=== PATIENT | female | born 1945 | race African-American/Black ===

== ENCOUNTER 2016-05-10 20:24 | Emergency (ER) | payer OTHER, MEDICAID ==
[~2016-05-10] VITALS: Ht 162.6 cm; Wt 78.5 kg
[~2016-05-10 20:24] MED LIST: ALBUAER3 IN; ALEN35TA18 PO; AMLO5TAB2 PO; CANA100T OR; DOCU60SY2 PO; FERR325T50 PO; GABA300C8; IBUP800T24 PO; LATA0.0015 EACHEYE; LISI-646 PO; NOR10T PO; OXYB15TA12 PO; PRAV20TA3 PO; SERDISK IN
[2016-05-10 20:45] VITALS: BP 141/67
[2016-05-10 21:19] LABS: Basophils # (auto) 0 uL; Basophils % (auto) 0.6 % (0.0-2.0); Eosinophils # (auto) 0.2 uL; Eosinophils % (auto) 2.5 % (0.0-7.0); Hemoglobin 11.5 g/dL (12.2-16.2); Lymphocytes # (auto) 2.1 uL; Lymphocytes % (auto) 34.6 % (10.0-50.0); Mean Corpuscular Hemoglobin 28.9 pg (28.0-32.0); Mean Corpuscular Hgb Conc. 31.9 g/dL (32.0-36.0); Mean Corpuscular Volume 90.7 fL (80.0-100.0); Mean Platelet Volume 7.8 fL (7.4-10.4); Monocytes # (auto) 0.4 uL; Monocytes % (auto) 6.6 % (0.0-12.0); Neutrophils # (auto) 3.4 uL; Neutrophils % (auto) 55.7 % (37.0-80.0); Platelet Count (auto) 308 10^3/uL (140-450); Red Cell Distribution Width 16.7 % (11.6-16.0); White Blood Cell 6.1 10^3/uL (4.4-10.8)
[2016-05-10 21:42] LABS: Albumin 3.8 g/dL (3.4-5.0); BUN/Creatinine Ratio 12.8; Bilirubin, Total 0.3 mg/dL (0.2-1.0); Calcium 9.2 mg/dL (8.5-10.1); Potassium 4.2 mmol/L (3.5-5.1); Total Protein 8.1 g/dL (6.4-8.2)
== END 2016-05-11 01:20 | disposition left against medical advice (07) ==
LOC: ER 20:29
DX: R07.89 Other chest pain (principal); Z53.21 Procedure and treatment not carried out due to patient leaving prior to being seen by health care provider
CPT/HCPCS: 36415; 71010; 80053; 84484; 85025; 93005

== ENCOUNTER 2017-06-12 15:33 | Emergency (ER) | payer OTHER, MEDICAID ==
[~2017-06-12] VITALS: Ht 162.6 cm; Wt 80.7 kg
[~2017-06-12 15:33] MED LIST changes: +GABA300C10; -GABA300C8
[2017-06-12 15:55] VITALS: BP 135/61
[2017-06-12 16:51] LABS: Basophils # (auto) 0 uL; Basophils % (auto) 0.6 % (0.0-2.0); Eosinophils # (auto) 0.1 uL; Eosinophils % (auto) 2.4 % (0.0-7.0); Hematocrit 36.6 % (36.0-46.0); Hemoglobin 11.8 g/dL (12.2-16.2); Lymphocytes # (auto) 1.8 uL; Lymphocytes % (auto) 32.3 % (10.0-50.0); Mean Corpuscular Hemoglobin 29.8 pg (28.0-32.0); Mean Corpuscular Hgb Conc. 32.3 g/dL (32.0-36.0); Mean Corpuscular Volume 92.2 fL (80.0-100.0); Monocytes # (auto) 0.3 uL; Monocytes % (auto) 5.8 % (0.0-12.0); Neutrophils # (auto) 3.3 uL; Neutrophils % (auto) 58.9 % (37.0-80.0); Platelet Count (auto) 319 10^3/uL (140-450); Red Blood Cells 3.96 10^6/uL (4.0-5.20); Red Cell Distribution Width 16.6 % (11.8-14.3); White Blood Cell 5.7 10^3/uL (4.4-10.8)
[2017-06-12 17:51] LABS: Alanine Aminotransferase 10 U/L (13-56); Albumin 3.8 g/dL (3.4-5.0); Alkaline Phosphatase 80 U/L (45-117); Anion Gap 7 (5-15); Aspartate Aminotransferase 13 U/L (15-37); BUN/Creatinine Ratio 13.1; Bilirubin, Total 0.3 mg/dL (0.2-1.0); Blood Urea Nitrogen 16 mg/dL (7-18); Calcium 8.8 mg/dL (8.5-10.1); Carbon Dioxide 25 mmol/L (21-32); Chloride 105 mmol/L (98-107); GFR African American 56 mL/min; GFR Non-African American 46 mL/min; Glucose 90 mg/dL (74-106); Potassium 4.2 mmol/L (3.5-5.1); Sodium 137 mmol/L (136-145); Total Protein 8.4 g/dL (6.4-8.2)
== END 2017-06-12 19:16 | disposition home or self-care (01) ==
LOC: ER 15:33
DX: R07.89 Other chest pain (principal); M19.90 Unspecified osteoarthritis, unspecified site; I13.0 Hypertensive heart and chronic kidney disease with heart failure and stage 1 through stage 4 chronic kidney disease, or unspecified chronic kidney disease; N18.9 Chronic kidney disease, unspecified; J44.9 Chronic obstructive pulmonary disease, unspecified; E11.22 Type 2 diabetes mellitus with diabetic chronic kidney disease; E78.5 Hyperlipidemia, unspecified; E07.9 Disorder of thyroid, unspecified; I25.810 Atherosclerosis of coronary artery bypass graft(s) without angina pectoris; Z95.1 Presence of aortocoronary bypass graft; Z79.899 Other long term (current) drug therapy; Z90.710 Acquired absence of both cervix and uterus; Z79.84 Long term (current) use of oral hypoglycemic drugs; Z86.73 Personal history of transient ischemic attack (TIA), and cerebral infarction without residual deficits
CPT/HCPCS: 36415; 71045; 80053; 84484; 85025; 93005

== ENCOUNTER 2017-07-12 11:36 | Emergency (ER) | payer OTHER, MEDICAID ==
[~2017-07-12] VITALS: Ht 162.6 cm; Wt 77.1 kg
[2017-07-12 11:44] VITALS: BP 116/62
[2017-07-12 12:30] LABS: Basophils # (auto) 0 uL; Basophils % (auto) 0.6 % (0.0-2.0); Eosinophils # (auto) 0.1 uL; Eosinophils % (auto) 2.2 % (0.0-7.0); Hematocrit 34.6 % (36.0-46.0); Hemoglobin 11.4 g/dL (12.2-16.2); Lymphocytes # (auto) 1.5 uL; Lymphocytes % (auto) 30.2 % (10.0-50.0); Mean Corpuscular Hemoglobin 29.9 pg (28.0-32.0); Mean Corpuscular Hgb Conc. 32.8 g/dL (32.0-36.0); Mean Corpuscular Volume 91.2 fL (80.0-100.0); Monocytes # (auto) 0.3 uL; Monocytes % (auto) 5.6 % (0.0-12.0); Neutrophils % (auto) 61.4 % (37.0-80.0); Nucleated Red Blood Cells % 0.1 %; Platelet Count (auto) 300 10^3/uL (140-450); White Blood Cell 4.8 10^3/uL (4.4-10.8)
[2017-07-12 13:01] LABS: Alanine Aminotransferase 11 U/L (13-56); Albumin 3.4 g/dL (3.4-5.0); Alkaline Phosphatase 84 U/L (45-117); Anion Gap 8 (5-15); Aspartate Aminotransferase 11 U/L (15-37); BUN/Creatinine Ratio 11.3; Bilirubin, Total 0.3 mg/dL (0.2-1.0); Blood Urea Nitrogen 15 mg/dL (7-18); Calcium 8.8 mg/dL (8.5-10.1); Carbon Dioxide 23 mmol/L (21-32); Chloride 111 mmol/L (98-107); GFR African American 51 mL/min; GFR Non-African American 42 mL/min; Glucose 141 mg/dL (74-106); Magnesium 2.4 mg/dL (1.6-2.6); Potassium 4.3 mmol/L (3.5-5.1); Sodium 142 mmol/L (136-145); Total Protein 7.9 g/dL (6.4-8.2)
== END 2017-07-12 16:00 | disposition left against medical advice (07) ==
LOC: ER 11:36
DX: R07.9 Chest pain, unspecified (principal); Z53.21 Procedure and treatment not carried out due to patient leaving prior to being seen by health care provider
CPT/HCPCS: 36415; 71046; 80053; 82962; 83735; 84484; 85025; 93005

== ENCOUNTER 2018-12-26 20:12 | Emergency (ER) | payer OTHER, MEDICAID ==
[~2018-12-26] VITALS: Ht 165.1 cm; Wt 82.1 kg
[~2018-12-26 20:12] MED LIST changes: -ALBUAER3 IN; -ALEN35TA18 PO; -AMLO5TAB2 PO; -CANA100T OR; -GABA300C10; +GABA300C10 PO; -LISI-646 PO; +LISI10TA6 PO; -OXYB15TA12 PO; +OXYB5SYP4 PO; -PRAV20TA3 PO; -SERDISK IN
[2018-12-26 20:53] LABS: Basophils # (auto) 0 uL; Basophils % (auto) 0.6 % (0.0-2.0); Eosinophils # (auto) 0.2 uL; Eosinophils % (auto) 2.7 % (0.0-7.0); Hematocrit 34.5 % (36.0-46.0); Hemoglobin 11.5 g/dL (12.2-16.2); Lymphocytes % (auto) 31.1 % (10.0-50.0); Mean Corpuscular Hemoglobin 30.2 pg (28.0-32.0); Mean Corpuscular Hgb Conc. 33.4 g/dL (32.0-36.0); Mean Corpuscular Volume 90.2 fL (80.0-100.0); Monocytes # (auto) 0.4 uL; Monocytes % (auto) 6.7 % (0.0-12.0); Neutrophils # (auto) 3.8 uL; Neutrophils % (auto) 58.9 % (37.0-80.0); Nucleated Red Blood Cells % 0.1 %; Platelet Count (auto) 290 10^3/uL (140-450); Red Blood Cells 3.83 10^6/uL (4.0-5.20); Red Cell Distribution Width 15.6 % (11.8-14.3); White Blood Cell 6.5 10^3/uL (4.4-10.8)
[2018-12-26 20:56] LABS: Alanine Aminotransferase 12 U/L (13-56); Albumin 3.2 g/dL (3.4-5.0); Anion Gap 6 (5-15); Aspartate Aminotransferase 11 U/L (15-37); BUN/Creatinine Ratio 8.4; Blood Urea Nitrogen 12 mg/dL (7-18); Calcium 8.7 mg/dL (8.5-10.1); Carbon Dioxide 28 mmol/L (21-32); Chloride 108 mmol/L (98-107); GFR African American 46 mL/min; GFR Non-African American 38 mL/min; Glucose 136 mg/dL (74-106); Potassium 3.6 mmol/L (3.5-5.1); Sodium 142 mmol/L (136-145)
[2018-12-26 21:11] LABS: Alkaline Phosphatase 88 U/L (45-117); Bilirubin, Total 0.2 mg/dL (0.2-1.0); Total Protein 7.2 g/dL (6.4-8.2)
[2018-12-26 21:32] LABS: Urine Bacteria FEW /hpf (None Seen); Urine Blood 1+ /uL (Negative); Urine Specific Gravity 1.017 (1.001-1.035); Urine WBC 5 /hpf (0 - 5)
[2018-12-27] VITALS: BP 120/45
== END 2018-12-27 01:22 | disposition left against medical advice (07) ==
LOC: ER 20:23
DX: R07.9 Chest pain, unspecified (principal); Z53.21 Procedure and treatment not carried out due to patient leaving prior to being seen by health care provider
CPT/HCPCS: 36415; 71046; 80053; 81001; 84484; 85025

== ENCOUNTER 2019-08-11 22:14 | Inpatient (IN) | payer OTHER, MEDICAID ==
[~2019-08-11] VITALS: Ht 162.6 cm; Wt 95.4 kg
[~2019-08-11 22:14] MED LIST changes: -LATA0.0015 EACHEYE; +LATA0.0019 EACHEYE
[2019-08-11 23:15] LABS: Hematocrit 32.3 % (36.0-46.0); Hemoglobin 10.6 g/dL (12.2-16.2); Mean Corpuscular Hemoglobin 29.8 pg (28.0-32.0); Mean Corpuscular Hgb Conc. 32.7 g/dL (32.0-36.0); Mean Corpuscular Volume 91.3 fL (80.0-100.0); Platelet Count (auto) 319 10^3/uL (140-450); Red Blood Cells 3.54 10^6/uL (4.0-5.20); Red Cell Distribution Width 16.1 % (11.8-14.3); White Blood Cell 16.5 10^3/uL (4.4-10.8)
[2019-08-11] MEDS ORDERED: cefTRIAXone 1GM/50ML D5W 50 ML IV ONE (23:15)
[2019-08-11] MEDS ORDERED: SODIUM CHLORIDE 0.9% 3,000 ML IV ONE (23:15)
[2019-08-11 23:23] LABS: Basophils % (manual) 0 (0.0-2.0); Blast Cells 0; Eosinophils % (manual) 0 (0-7); Metamyelocytes % 0; Myelocytes % 0; Promyelocytes % 0; Reactive Lymphocytes 0
[2019-08-11] MEDS ORDERED: ACETAMINOPHEN 325 MG TAB PO ONE (23:30)
[2019-08-11 23:32] LABS: Urine Amorphous Crystal FEW /hpf (None Seen); Urine Bacteria FEW /hpf (None Seen); Urine Blood TRACE /uL (Negative); Urine Specific Gravity 1.028 (1.001-1.035); Urine WBC 6 /hpf (0 - 5)
[2019-08-11 23:32] LABS: INR 1.3 (0.9-1.15); Partial Thromboplastin Time 37.3 sec (23.64-32.05)
[2019-08-11 23:37] LABS: Alanine Aminotransferase 13 U/L (13-56); Albumin 2.5 g/dL (3.4-5.0); Anion Gap 11 (5-15); Aspartate Aminotransferase 25 U/L (15-37); Blood Alcohol < 3.0 mg/dL (0-5); Blood Urea Nitrogen 50 mg/dL (7-18); Calcium 8.5 mg/dL (8.5-10.1); Carbon Dioxide 19 mmol/L (21-32); Chloride 105 mmol/L (98-107); GFR African American 12 mL/min; GFR Non-African American 10 mL/min; Glucose 101 mg/dL (74-106); Potassium 4.1 mmol/L (3.5-5.1); Sodium 135 mmol/L (136-145)
[2019-08-11 23:40] LABS: Alkaline Phosphatase 96 U/L (45-117); Bilirubin, Total 0.4 mg/dL (0.2-1.0); Total Protein 7.8 g/dL (6.4-8.2)
[2019-08-12] VITALS (56 sets, daily range): BP systolic 78–150; BP diastolic 30–77
[2019-08-12] MEDS ORDERED: PIPERACILLIN-TAZOB 3.375GM 100 ML IV SCH
[2019-08-12 00:22] LABS: Lactic Acid w/Reflex 2.5 mmol/L (0.4-2.0)
[2019-08-12] MEDS ORDERED: CLINDAMYCIN 900MG IV 50 ML IV ONE (00:30)
[2019-08-12 00:49] LABS: Band Neutrophils % (manual) 10; Monocytes % (manual) 5 (0-12)
[2019-08-12 00:50] LABS: Lymphocytes % (manual) 6 (10.0-50.0)
[2019-08-12] MEDS ORDERED: HETASTARCH 500 ML IV ONE (01:30)
[2019-08-12] MEDS ORDERED: DEXTROSE (50%) 50ML SYRG IV PRN (02:15)
[2019-08-12] MEDS ORDERED: IPRATROPIUM BROM 0.5 MG/2.5ML INH SOL NEB PRN (02:15)
[2019-08-12] MEDS ORDERED: ALBUTEROL SULF 2.5 MG/0.5ML(0.5%) NEB SOLN NEB PRN (02:15)
[2019-08-12] MEDS ORDERED: DOCUSATE SOD 100 MG CAP PO PRN (02:15)
[2019-08-12] MEDS ORDERED: SODIUM CHLORIDE 0.9% 1,000 ML IV ONE (03:00)
[2019-08-12] MEDS: InsuLIN REG 1unit/0.01ml Soln (100units/ml) SC SCH ×5 (04:00→21:57)
[2019-08-12] MEDS: ACCU-CHEK COMFORT CURVE STRIP VI SCH ×5 (04:09→21:38)
[2019-08-12] MEDS: NOREPINEPHRINE 8 MG/250ML KIT 250 ML IV SCH ×2 (04:27→12:03)
[2019-08-12] MEDS: SODIUM CHLORIDE 0.9% 1,000 ML IV SCH ×3 (05:14→14:45)
[2019-08-12] MEDS: CLINDAMYCIN 600MG IV 50 ML IV SCH ×2 (05:20→11:12)
[2019-08-12] MEDS ORDERED: LORazepam 2MG/ML-1ML VIAL IV PRN (06:45)
[2019-08-12] MEDS ORDERED: LORazepam 2MG/ML-1ML VIAL IV ONE (06:45)
[2019-08-12 06:54] LABS: Basophils # (auto) 0 10 ^3/uL (0-0.2); Basophils % (auto) 0.3 % (0.0-2.0); Eosinophils # (auto) 0 10 ^3/uL (0-0.8); Eosinophils % (auto) 0.2 % (0.0-7.0); Hematocrit 28.6 % (36.0-46.0); Hemoglobin 9.3 g/dL (12.2-16.2); Lymphocytes # (auto) 0.9 10 ^3/uL (0.4-5.4); Lymphocytes % (auto) 5.3 % (10.0-50.0); Mean Corpuscular Hemoglobin 29.8 pg (28.0-32.0); Mean Corpuscular Hgb Conc. 32.4 g/dL (32.0-36.0); Mean Corpuscular Volume 92.1 fL (80.0-100.0); Monocytes # (auto) 1.3 10 ^3/uL (0-1.3); Monocytes % (auto) 7.2 % (0.0-12.0); Neutrophils # (auto) 15.1 10 ^3/uL (1.6-8.6); Nucleated Red Blood Cells % 0.1 %; Platelet Count (auto) 292 10^3/uL (140-450); Red Blood Cells 3.11 10^6/uL (4.0-5.20); Red Cell Distribution Width 16.3 % (11.8-14.3); White Blood Cell 17.4 10^3/uL (4.4-10.8)
[2019-08-12 07:14] LABS: Potassium 3.9 mmol/L (3.5-5.1)
[2019-08-12 07:24] LABS: BUN/Creatinine Ratio 13.2
[2019-08-12] MEDS: ACETAMINOPHEN 325 MG TAB PO PRN (08:06)
[2019-08-12] MEDS ORDERED: methylPREDNISolone SOD SUCC 125 MG/2 ML VL IV SCH (10:00)
[2019-08-12] MEDS: HYDROcodone-ACET 5/325MG TAB PO PRN ×2 (10:22→16:27)
[2019-08-12] MEDS ORDERED: VANCOMYCIN PER PHARMACY 0 MG IV SCH (14:45)
[2019-08-12] MEDS ORDERED: PIPERACILLIN-TAZOB 3.375GM 100 ML IV ONE (14:45)
[2019-08-12] MEDS: ONDANSETRON HCL 4 MG/2 ML VIAL IV PRN ×2 (16:21→22:40)
[2019-08-12] MEDS ORDERED: ADENOSINE 6 MG/2 ML INJ IV PRN (16:30)
[2019-08-12] MEDS ORDERED: DIGOXIN (250MCG/ML) 2 ML AMPULE IV ONE (16:30)
[2019-08-12] MEDS ORDERED: VANCOMYCIN 1GM/250ML 250 ML IV ONE (18:00)
[2019-08-12] MEDS ORDERED: cefTRIAXone 1GM/50ML D5W 50 ML IV SCH (21:00)
[2019-08-12] MEDS: PIPERACILLIN-TAZOB 2.25GM 50 ML IV SCH (21:38)
[2019-08-12] MEDS: methylPREDNISolone SOD SUCC 40 MG/ML VL IV SCH (21:38)
[2019-08-13] VITALS (33 sets, daily range): BP systolic 112–153; BP diastolic 48–75
[2019-08-13 04:25] LABS: Basophils # (auto) 0 10 ^3/uL (0-0.2); Basophils % (auto) 0.2 % (0.0-2.0); Eosinophils # (auto) 0.4 10 ^3/uL (0-0.8); Eosinophils % (auto) 2.3 % (0.0-7.0); Hematocrit 28.3 % (36.0-46.0); Hemoglobin 9.4 g/dL (12.2-16.2); Lymphocytes # (auto) 0.4 10 ^3/uL (0.4-5.4); Lymphocytes % (auto) 2.6 % (10.0-50.0); Mean Corpuscular Hemoglobin 30.4 pg (28.0-32.0); Mean Corpuscular Hgb Conc. 33.2 g/dL (32.0-36.0); Mean Corpuscular Volume 91.6 fL (80.0-100.0); Monocytes # (auto) 0.7 10 ^3/uL (0-1.3); Monocytes % (auto) 3.9 % (0.0-12.0); Neutrophils # (auto) 15.6 10 ^3/uL (1.6-8.6); Nucleated Red Blood Cells % 0.1 %; Platelet Count (auto) 326 10^3/uL (140-450); Red Blood Cells 3.09 10^6/uL (4.0-5.20); Red Cell Distribution Width 16.7 % (11.8-14.3); White Blood Cell 17.1 10^3/uL (4.4-10.8)
[2019-08-13 04:40] LABS: Potassium 4.5 mmol/L (3.5-5.1)
[2019-08-13 04:45] LABS: BUN/Creatinine Ratio 12.8; Calcium 7.5 mg/dL (8.5-10.1)
[2019-08-13] MEDS: PIPERACILLIN-TAZOB 2.25GM 50 ML IV SCH ×4 (05:53→23:50)
[2019-08-13] MEDS: SODIUM CHLORIDE 0.9% 1,000 ML IV SCH ×3 (05:54→20:45)
[2019-08-13] MEDS: InsuLIN REG 1unit/0.01ml Soln (100units/ml) SC SCH ×4 (06:33→21:47)
[2019-08-13] MEDS: ACCU-CHEK COMFORT CURVE STRIP VI SCH ×4 (06:34→21:45)
[2019-08-13] MEDS: methylPREDNISolone SOD SUCC 40 MG/ML VL IV SCH ×2 (08:55→21:45)
[2019-08-13] MEDS ORDERED: VANCOMYCIN 1GM/250ML 250 ML IV ONE (09:00)
[2019-08-13] MEDS: HYDROcodone-ACET 5/325MG TAB PO PRN ×2 (09:05→14:35)
[2019-08-14 05:39] VITALS: BP 156/80
[2019-08-14] MEDS: SODIUM CHLORIDE 0.9% 1,000 ML IV SCH (06:26)
[2019-08-14] MEDS: PIPERACILLIN-TAZOB 2.25GM 50 ML IV SCH (06:26)
[2019-08-14] MEDS: InsuLIN REG 1unit/0.01ml Soln (100units/ml) SC SCH ×4 (06:32→22:02)
[2019-08-14] MEDS: ACCU-CHEK COMFORT CURVE STRIP VI SCH ×4 (06:32→21:59)
[2019-08-14 06:44] LABS: Basophils # (auto) 0 10 ^3/uL (0-0.2); Basophils % (auto) 0.2 % (0.0-2.0); Eosinophils # (auto) 0 10 ^3/uL (0-0.8); Hemoglobin 10.1 g/dL (12.2-16.2); Lymphocytes # (auto) 0.4 10 ^3/uL (0.4-5.4); Mean Corpuscular Hemoglobin 29.3 pg (28.0-32.0); Mean Corpuscular Hgb Conc. 32.6 g/dL (32.0-36.0); Mean Corpuscular Volume 89.8 fL (80.0-100.0); Monocytes # (auto) 0.7 10 ^3/uL (0-1.3); Monocytes % (auto) 3.5 % (0.0-12.0); Neutrophils # (auto) 19.9 10 ^3/uL (1.6-8.6); Neutrophils % (auto) 94.3 % (37.0-80.0); Nucleated Red Blood Cells % 0.2 %; Platelet Count (auto) 413 10^3/uL (140-450); Red Blood Cells 3.46 10^6/uL (4.0-5.20); Red Cell Distribution Width 16.7 % (11.8-14.3); White Blood Cell 21.1 10^3/uL (4.4-10.8)
[2019-08-14 06:49] LABS: BUN/Creatinine Ratio 44.5; Calcium 8.3 mg/dL (8.5-10.1)
[2019-08-14] MEDS: ACETAMINOPHEN 325 MG TAB PO PRN (08:46)
[2019-08-14 09:00] VITALS: BP 158/72
[2019-08-14] MEDS: methylPREDNISolone SOD SUCC 40 MG/ML VL IV SCH (09:33)
[2019-08-14] MEDS: HYDROcodone-ACET 5/325MG TAB PO PRN ×3 (11:23→23:30)
[2019-08-14] MEDS: VANCOMYCIN 1GM/250ML 250 ML IV SCH ×2 (12:33→23:30)
[2019-08-14] MEDS: PIPERACILLIN-TAZOB 3.375GM 100 ML IV SCH ×2 (12:34→18:21)
[2019-08-14 13:00] VITALS: BP 129/58
[2019-08-14] MEDS ORDERED: AMIODARONE 450mg/250ml AE 250 ML IV SCH (16:56)
[2019-08-14] MEDS ORDERED: METOPROLOL TARTRATE 1MG/1ML-5ML VIAL IV ONE ×2 (17:00→20:45)
[2019-08-14] MEDS ORDERED: DIGOXIN (250MCG/ML) 2 ML AMPULE IV ONE (17:00)
[2019-08-14] MEDS ORDERED: AMIODARONE HCL 150 MG in D5W 5% 100 ML IV ONE (17:00)
[2019-08-14 17:01] VITALS: BP 142/92
[2019-08-14] MEDS: ENOXAPARIN SOD 80 MG/0.8ML SYRINGE SC SCH (18:21)
[2019-08-14 21:35] VITALS: BP 124/83
[2019-08-14] MEDS: GABAPENTIN 300 MG CAP PO SCH (21:59)
[2019-08-14] MEDS: ATORVASTATIN 20 MG TAB PO SCH (21:59)
[2019-08-15] MEDS: AMIODARONE 450mg/250ml AE 250 ML IV SCH ×2 (00:06→14:48)
[2019-08-15] MEDS: PIPERACILLIN-TAZOB 3.375GM 100 ML IV SCH ×5 (00:35→23:14)
[2019-08-15 02:47] VITALS: BP 124/83
[2019-08-15 05:12] VITALS: BP 143/87
[2019-08-15] MEDS: ENOXAPARIN SOD 80 MG/0.8ML SYRINGE SC SCH ×2 (05:29→17:23)
[2019-08-15 05:54] LABS: Hematocrit 37.5 % (36.0-46.0); Hemoglobin 12.3 g/dL (12.2-16.2); Mean Corpuscular Hemoglobin 29.5 pg (28.0-32.0); Mean Corpuscular Hgb Conc. 32.8 g/dL (32.0-36.0); Mean Corpuscular Volume 89.8 fL (80.0-100.0); Platelet Count (auto) 441 10^3/uL (140-450); Red Blood Cells 4.17 10^6/uL (4.0-5.20); Red Cell Distribution Width 16.2 % (11.8-14.3); White Blood Cell 23.2 10^3/uL (4.4-10.8)
[2019-08-15 06:12] LABS: BUN/Creatinine Ratio 48.1; Basophils % (manual) 0 (0.0-2.0); Blast Cells 0; Calcium 7.9 mg/dL (8.5-10.1); Eosinophils % (manual) 0 (0-7); Metamyelocytes % 0; Myelocytes % 0; Potassium 4.1 mmol/L (3.5-5.1); Promyelocytes % 0; Reactive Lymphocytes 0
[2019-08-15] MEDS: ACCU-CHEK COMFORT CURVE STRIP VI SCH ×4 (06:31→22:47)
[2019-08-15] MEDS: InsuLIN REG 1unit/0.01ml Soln (100units/ml) SC SCH ×4 (06:31→22:46)
[2019-08-15 06:47] LABS: Band Neutrophils % (manual) 2; Lymphocytes % (manual) 1 (10.0-50.0); Monocytes % (manual) 3 (0-12)
[2019-08-15 08:56] VITALS: BP 150/78
[2019-08-15] MEDS ORDERED: FERROUS SULFATE 325 MG TAB PO SCH (10:00)
[2019-08-15] MEDS: GABAPENTIN 300 MG CAP PO SCH ×2 (10:00→22:00)
[2019-08-15] MEDS: OXYBUTYNIN CHL 5 MG TAB PO SCH (10:00)
[2019-08-15] MEDS ORDERED: MIDAZOLAM HCL 1MG/1ML-2 ML VIAL IV ONE (10:15)
[2019-08-15] MEDS ORDERED: fentaNYL CITRATE 100 MCG/2 ML VL IV ONE (10:15)
[2019-08-15] MEDS ORDERED: LIDOCAINE VISCOUS 2% 15ML UD PO ONE (10:15)
[2019-08-15] MEDS ORDERED: diphenhdrAMINE HCL 50 MG/1 ML VL IV ONE (10:15)
[2019-08-15] MEDS: VANCOMYCIN 1GM/250ML 250 ML IV SCH ×2 (11:44→23:00)
[2019-08-15 13:00] VITALS: BP 98/49
[2019-08-15] MEDS: HYDROcodone-ACET 5/325MG TAB PO PRN (15:09)
[2019-08-15 17:00] VITALS: BP 145/74
[2019-08-15 20:45] VITALS: BP 110/66
[2019-08-15] MEDS: MORPHINE SULF INJ 2 MG/ML SYRINGE 1ML IV PRN (21:15)
[2019-08-15] MEDS: ATORVASTATIN 20 MG TAB PO SCH (22:00)
[2019-08-16] VITALS (61 sets, daily range): BP systolic 70–136; BP diastolic 50–79
[2019-08-16 03:40] LABS: Hematocrit 35.4 % (36.0-46.0); Hemoglobin 11.7 g/dL (12.2-16.2); Mean Corpuscular Hemoglobin 29.6 pg (28.0-32.0); Mean Corpuscular Hgb Conc. 33.1 g/dL (32.0-36.0); Mean Corpuscular Volume 89.4 fL (80.0-100.0); Platelet Count (auto) 442 10^3/uL (140-450); Red Blood Cells 3.96 10^6/uL (4.0-5.20); Red Cell Distribution Width 16.3 % (11.8-14.3); White Blood Cell 22.9 10^3/uL (4.4-10.8)
[2019-08-16 03:55] LABS: INR 1.16 (0.9-1.15); Partial Thromboplastin Time 36.8 sec (23.64-32.05)
[2019-08-16 03:56] LABS: Band Neutrophils % (manual) 0; Basophils % (manual) 0 (0.0-2.0); Blast Cells 0; Eosinophils % (manual) 0 (0-7); Metamyelocytes % 0; Monocytes % (manual) 0 (0-12); Myelocytes % 0; Promyelocytes % 0; Reactive Lymphocytes 0
[2019-08-16 04:07] LABS: Calcium 7.7 mg/dL (8.5-10.1); Potassium 3.3 mmol/L (3.5-5.1)
[2019-08-16 04:08] LABS: BUN/Creatinine Ratio 37.9
[2019-08-16] MEDS: ACETAMINOPHEN 325 MG TAB PO PRN ×2 (04:45→18:30)
[2019-08-16] MEDS: MORPHINE SULF INJ 2 MG/ML SYRINGE 1ML IV PRN ×2 (04:45→21:33)
[2019-08-16 04:55] LABS: Lymphocytes % (manual) 6 (10.0-50.0)
[2019-08-16] MEDS: ENOXAPARIN SOD 80 MG/0.8ML SYRINGE SC SCH ×2 (05:00→08:00)
[2019-08-16] MEDS: PIPERACILLIN-TAZOB 3.375GM 100 ML IV SCH (05:18)
[2019-08-16] MEDS: AMIODARONE 450mg/250ml AE 250 ML IV SCH ×2 (07:13→19:56)
[2019-08-16] MEDS: InsuLIN REG 1unit/0.01ml Soln (100units/ml) SC SCH ×4 (07:13→21:32)
[2019-08-16] MEDS: ACCU-CHEK COMFORT CURVE STRIP VI SCH ×4 (07:14→21:33)
[2019-08-16] MEDS: POTASSIUM CHL 20MEQ/100ML 100 ML IV SCH ×2 (07:15→09:32)
[2019-08-16] MEDS ORDERED: POTASSIUM CHL 20MEQ/100ML 200 ML IV ONE (07:21)
[2019-08-16] MEDS ORDERED: SODIUM CHLORIDE 0.9% 250 ML IV ONE ×2 (08:00→09:00)
[2019-08-16] MEDS: FERROUS SULFATE 325 MG TAB PO SCH (08:00)
[2019-08-16] MEDS ORDERED: VANCOMYCIN 1GM/250ML 250 ML IV SCH ×3 (09:00→21:00)
[2019-08-16] MEDS ORDERED: SODIUM CHLORIDE 0.9% 1,000 ML IV ONE ×2 (10:00)
[2019-08-16] MEDS ORDERED: MEROPENEM 1GM IVPB 100 ML IV SCH (10:00)
[2019-08-16] MEDS: OXYBUTYNIN CHL 5 MG TAB PO SCH (10:42)
[2019-08-16] MEDS: GABAPENTIN 300 MG CAP PO SCH ×2 (10:42→21:11)
[2019-08-16] MEDS ORDERED: DIGOXIN (250MCG/ML) 2 ML AMPULE IV ONE (11:15)
[2019-08-16 11:33] LABS: Urine Bacteria FEW /hpf (None Seen); Urine Blood 2+ /uL (Negative); Urine Specific Gravity 1.015 (1.001-1.035); Urine WBC 6 /hpf (0 - 5)
[2019-08-16] MEDS: HYDROcodone-ACET 5/325MG TAB PO PRN ×2 (12:29→20:00)
[2019-08-16 15:59] LABS: Hematocrit 32.4 % (36.0-46.0); Hemoglobin 10.4 g/dL (12.2-16.2); Mean Corpuscular Hemoglobin 28.8 pg (28.0-32.0); Mean Corpuscular Hgb Conc. 32.2 g/dL (32.0-36.0); Mean Corpuscular Volume 89.6 fL (80.0-100.0); Platelet Count (auto) 428 10^3/uL (140-450); Red Blood Cells 3.61 10^6/uL (4.0-5.20); Red Cell Distribution Width 15.9 % (11.8-14.3); White Blood Cell 22.6 10^3/uL (4.4-10.8)
[2019-08-16 16:05] LABS: Albumin 1.5 g/dL (3.4-5.0); BUN/Creatinine Ratio 30.1; Calcium 7.3 mg/dL (8.5-10.1); Potassium 3.7 mmol/L (3.5-5.1)
[2019-08-16 16:08] LABS: Bilirubin, Total 0.7 mg/dL (0.2-1.0); Total Protein 5.4 g/dL (6.4-8.2)
[2019-08-16 16:22] LABS: Basophils % (manual) 0 (0.0-2.0); Blast Cells 0; Metamyelocytes % 0; Myelocytes % 0; Promyelocytes % 0; Reactive Lymphocytes 0
[2019-08-16 17:09] LABS: Band Neutrophils % (manual) 5; Eosinophils % (manual) 1 (0-7); Lymphocytes % (manual) 8 (10.0-50.0); Monocytes % (manual) 1 (0-12)
[2019-08-16 17:21] LABS: INR 1.2 (0.9-1.15); Partial Thromboplastin Time 37.9 sec (23.64-32.05)
[2019-08-16] MEDS: MEROPENEM 1GM IVPB 100 ML IV SCH (18:30)
[2019-08-16] MEDS: ATORVASTATIN 20 MG TAB PO SCH (21:11)
[2019-08-17] VITALS (73 sets, daily range): BP systolic 97–166; BP diastolic 45–73
[2019-08-17] MEDS: ENOXAPARIN SOD 80 MG/0.8ML SYRINGE SC SCH ×2 (02:59→17:00)
[2019-08-17] MEDS: MEROPENEM 1GM IVPB 100 ML IV SCH ×3 (02:59→19:28)
[2019-08-17] MEDS: MORPHINE SULF INJ 2 MG/ML SYRINGE 1ML IV PRN ×2 (04:00→09:34)
[2019-08-17 04:38] LABS: Basophils # (auto) 0 10 ^3/uL (0-0.2); Basophils % (auto) 0.1 % (0.0-2.0); Eosinophils # (auto) 0.1 10 ^3/uL (0-0.8); Eosinophils % (auto) 0.3 % (0.0-7.0); Hemoglobin 10.4 g/dL (12.2-16.2); Lymphocytes # (auto) 1.5 10 ^3/uL (0.4-5.4); Lymphocytes % (auto) 5.3 % (10.0-50.0); Mean Corpuscular Hemoglobin 29.1 pg (28.0-32.0); Mean Corpuscular Hgb Conc. 32.6 g/dL (32.0-36.0); Mean Corpuscular Volume 89.2 fL (80.0-100.0); Monocytes # (auto) 1.2 10 ^3/uL (0-1.3); Monocytes % (auto) 4.4 % (0.0-12.0); Neutrophils # (auto) 25.2 10 ^3/uL (1.6-8.6); Neutrophils % (auto) 89.9 % (37.0-80.0); Nucleated Red Blood Cells % 0.1 %; Platelet Count (auto) 448 10^3/uL (140-450); Red Blood Cells 3.58 10^6/uL (4.0-5.20); Red Cell Distribution Width 16.2 % (11.8-14.3); White Blood Cell 28.1 10^3/uL (4.4-10.8)
[2019-08-17 04:46] LABS: Calcium 7.2 mg/dL (8.5-10.1); Potassium 3.5 mmol/L (3.5-5.1)
[2019-08-17 04:50] LABS: BUN/Creatinine Ratio 23.8
[2019-08-17] MEDS: InsuLIN REG 1unit/0.01ml Soln (100units/ml) SC SCH ×4 (06:34→21:16)
[2019-08-17] MEDS: ACCU-CHEK COMFORT CURVE STRIP VI SCH ×4 (06:38→21:17)
[2019-08-17] MEDS ORDERED: IOHEXOL 300 MG/ML 100ML BOTTLE IJ ONE (07:43)
[2019-08-17] MEDS: FERROUS SULFATE 325 MG TAB PO SCH (08:00)
[2019-08-17] MEDS: OXYBUTYNIN CHL 5 MG TAB PO SCH (10:00)
[2019-08-17] MEDS: GABAPENTIN 300 MG CAP PO SCH ×2 (10:00→21:17)
[2019-08-17] MEDS ORDERED: MORPHINE SULF INJ 2 MG/ML SYRINGE 1ML IV ONE (11:15)
[2019-08-17] MEDS ORDERED: MORPHINE SULF INJ 2 MG/ML SYRINGE 1ML IV PRN (11:15)
[2019-08-17] MEDS ORDERED: LIDOCAINE 1% (LOCAL ANESTH.) PF 5ml SDV ONE (13:38)
[2019-08-17] MEDS ORDERED: SUCCINYLCHOLINE CHLORIDE 20 MG/ML 10ML VIAL IV ONE (13:38)
[2019-08-17] MEDS ORDERED: MIDAZOLAM HCL 1MG/1ML-2 ML VIAL ONE (13:42)
[2019-08-17] MEDS ORDERED: ETOMIDATE (2MG/ML) 20ML VIAL IV ONE (13:45)
[2019-08-17] MEDS ORDERED: METOCLOPRAMIDE HCL 5MG/ml INJ 2ml VIAL ONE (13:46)
[2019-08-17] MEDS ORDERED: ROCURONIUM 10MG/ML 10ML VIAL IV ONE (13:46)
[2019-08-17] MEDS ORDERED: fentaNYL CITRATE 100 MCG/2 ML VL ONE (14:04)
[2019-08-17] MEDS ORDERED: GLYCOPYRROLATE 0.2 MG/ML 1ML VIAL ONE (14:26)
[2019-08-17] MEDS ORDERED: NEOSTIGMINE 1 MG/ML INJ (10mg/10ML VIAL) ONE (14:26)
[2019-08-17] MEDS ORDERED: NALOXONE HCL 0.4 MG/ML VIAL IV PRN (14:30)
[2019-08-17] MEDS ORDERED: ONDANSETRON HCL 4 MG/2 ML VIAL IV PRN (14:30)
[2019-08-17] MEDS ORDERED: HYDROmorphone HCL 2 MG/ML VL IV PRN ×2 (14:30)
[2019-08-17] MEDS ORDERED: ACCU-CHEK COMFORT CURVE STRIP VI ONE (14:30)
[2019-08-17] MEDS ORDERED: DAKINS QUARTER STR 0.125% (NaHypochlorite) 473 ML TOPICAL SOL TOP ONE (14:30)
[2019-08-17] MEDS: HYDROmorphone HCL 2 MG/ML VL IV PRN ×2 (16:06→21:18)
[2019-08-17] MEDS: SODIUM CHLORIDE 0.9% 1,000 ML IV SCH (16:09)
[2019-08-17] MEDS: VANCOMYCIN 1GM/250ML 250 ML IV SCH (16:17)
[2019-08-17] MEDS ORDERED: PIPERACILLIN-TAZO 4.5GM 100 ML IV SCH (18:00)
[2019-08-17] MEDS: CLINDAMYCIN 600MG IV 50 ML IV SCH (18:39)
[2019-08-17] MEDS: ATORVASTATIN 20 MG TAB PO SCH (21:17)
[2019-08-17] MEDS ORDERED: ENOXAPARIN SOD 80 MG/0.8ML SYRINGE SC SCH (22:00)
[2019-08-18] VITALS (43 sets, daily range): BP systolic 92–142; BP diastolic 35–83
[2019-08-18] MEDS: CLINDAMYCIN 600MG IV 50 ML IV SCH ×3 (01:00→17:23)
[2019-08-18] MEDS: MEROPENEM 1GM IVPB 100 ML IV SCH ×3 (03:00→19:30)
[2019-08-18] MEDS: HYDROmorphone HCL 2 MG/ML VL IV PRN ×4 (04:00→22:54)
[2019-08-18] MEDS: InsuLIN REG 1unit/0.01ml Soln (100units/ml) SC SCH ×4 (06:40→21:32)
[2019-08-18] MEDS: ACCU-CHEK COMFORT CURVE STRIP VI SCH ×4 (06:43→21:31)
[2019-08-18] MEDS: FERROUS SULFATE 325 MG TAB PO SCH (08:00)
[2019-08-18 08:44] LABS: Hematocrit 26.6 % (36.0-46.0); Hemoglobin 8.7 g/dL (12.2-16.2); Mean Corpuscular Hemoglobin 29.5 pg (28.0-32.0); Mean Corpuscular Hgb Conc. 32.8 g/dL (32.0-36.0); Mean Corpuscular Volume 90.1 fL (80.0-100.0); Platelet Count (auto) 377 10^3/uL (140-450); Red Blood Cells 2.96 10^6/uL (4.0-5.20); Red Cell Distribution Width 16.3 % (11.8-14.3); White Blood Cell 22.1 10^3/uL (4.4-10.8)
[2019-08-18 08:50] LABS: Blast Cells 0
[2019-08-18 08:52] LABS: BUN/Creatinine Ratio 19.4; Basophils % (manual) 0 (0.0-2.0); Calcium 7.3 mg/dL (8.5-10.1); Myelocytes % 0; Potassium 3.5 mmol/L (3.5-5.1); Promyelocytes % 0; Reactive Lymphocytes 0
[2019-08-18] MEDS: VANCOMYCIN 1GM/250ML 250 ML IV SCH (09:01)
[2019-08-18 09:25] LABS: Band Neutrophils % (manual) 5; Eosinophils % (manual) 4 (0-7); Lymphocytes % (manual) 6 (10.0-50.0); Metamyelocytes % 1; Monocytes % (manual) 2 (0-12)
[2019-08-18] MEDS: GABAPENTIN 300 MG CAP PO SCH ×2 (09:54→21:30)
[2019-08-18] MEDS: OXYBUTYNIN CHL 5 MG TAB PO SCH (09:54)
[2019-08-18] MEDS: DAKINS HALF STR 0.25% (NaHypochlorite) 473 ML TOPICAL SOL TOP SCH (10:00)
[2019-08-18] MEDS ORDERED: HEPARIN DRIP/D5W 100UNITS/ML 250 ML IV SCH (14:49)
[2019-08-18] MEDS ORDERED: HEPARIN SODIUM (PORCINE) 5000 UNITS/ML 1ML VIAL IV ONE (15:00)
[2019-08-18 15:21] LABS: Hematocrit 27.7 % (36.0-46.0); Hemoglobin 9.1 g/dL (12.2-16.2); Mean Corpuscular Hemoglobin 29.5 pg (28.0-32.0); Mean Corpuscular Volume 89.4 fL (80.0-100.0); Platelet Count (auto) 385 10^3/uL (140-450); Red Cell Distribution Width 16.1 % (11.8-14.3); White Blood Cell 21.4 10^3/uL (4.4-10.8)
[2019-08-18 15:24] LABS: Basophils % (manual) 0 (0.0-2.0); Blast Cells 0; Myelocytes % 0; Promyelocytes % 0; Reactive Lymphocytes 0
[2019-08-18 15:40] LABS: Band Neutrophils % (manual) 3; Eosinophils % (manual) 1 (0-7); Lymphocytes % (manual) 5 (10.0-50.0); Metamyelocytes % 1; Monocytes % (manual) 2 (0-12)
[2019-08-18] MEDS: SODIUM CHLORIDE 0.9% 1,000 ML IV SCH (15:45)
[2019-08-18 15:58] LABS: INR 1.09 (0.9-1.15)
[2019-08-18] MEDS: HEPARIN DRIP/D5W 100UNITS/ML 250 ML IV SCH (16:17)
[2019-08-18] MEDS: ATORVASTATIN 20 MG TAB PO SCH (21:30)
[2019-08-18] MEDS: AMIODARONE HCL 200 MG TAB PO SCH (21:30)
[2019-08-18] MEDS: ACETAMINOPHEN 325 MG TAB PO PRN (21:32)
[2019-08-18 22:48] LABS: INR 1.13 (0.9-1.15); Partial Thromboplastin Time 68.3 sec (23.64-32.05)
[2019-08-19 00:13] VITALS: BP 102/48
[2019-08-19] MEDS: CLINDAMYCIN 600MG IV 50 ML IV SCH ×3 (00:38→16:56)
[2019-08-19] MEDS: HYDROcodone-ACET 5/325MG TAB PO PRN (00:41)
[2019-08-19] MEDS: VANCOMYCIN 1GM/250ML 250 ML IV SCH ×2 (02:34→21:18)
[2019-08-19] MEDS: MEROPENEM 1GM IVPB 100 ML IV SCH ×3 (03:33→18:26)
[2019-08-19] MEDS: HYDROmorphone HCL 2 MG/ML VL IV PRN ×4 (04:19→20:02)
[2019-08-19 04:20] VITALS: BP 115/56
[2019-08-19 04:34] LABS: Basophils # (auto) 0 10 ^3/uL (0-0.2); Eosinophils # (auto) 0.2 10 ^3/uL (0-0.8); Eosinophils % (auto) 1.1 % (0.0-7.0); Hematocrit 25.8 % (36.0-46.0); Hemoglobin 8.4 g/dL (12.2-16.2); Lymphocytes # (auto) 1.5 10 ^3/uL (0.4-5.4); Lymphocytes % (auto) 6.7 % (10.0-50.0); Mean Corpuscular Hemoglobin 29.6 pg (28.0-32.0); Mean Corpuscular Hgb Conc. 32.5 g/dL (32.0-36.0); Monocytes % (auto) 4.7 % (0.0-12.0); Neutrophils # (auto) 18.9 10 ^3/uL (1.6-8.6); Neutrophils % (auto) 87.5 % (37.0-80.0); Platelet Count (auto) 384 10^3/uL (140-450); Red Blood Cells 2.84 10^6/uL (4.0-5.20); Red Cell Distribution Width 16.3 % (11.8-14.3); White Blood Cell 21.6 10^3/uL (4.4-10.8)
[2019-08-19] MEDS: SODIUM CHLORIDE 0.9% 1,000 ML IV SCH (04:45)
[2019-08-19 04:51] LABS: BUN/Creatinine Ratio 17.7; Calcium 7.3 mg/dL (8.5-10.1); Potassium 3.7 mmol/L (3.5-5.1)
[2019-08-19 04:57] LABS: INR 1.15 (0.9-1.15)
[2019-08-19 04:58] LABS: Partial Thromboplastin Time 79.4 sec (23.64-32.05)
[2019-08-19] MEDS: ACCU-CHEK COMFORT CURVE STRIP VI SCH ×4 (06:34→21:19)
[2019-08-19] MEDS: HEPARIN DRIP/D5W 100UNITS/ML 250 ML IV SCH ×2 (06:35→22:31)
[2019-08-19] MEDS: InsuLIN REG 1unit/0.01ml Soln (100units/ml) SC SCH ×5 (06:35→21:25)
[2019-08-19 07:30] VITALS: BP 128/60
[2019-08-19] MEDS: FERROUS SULFATE 325 MG TAB PO SCH (08:38)
[2019-08-19] MEDS: AMIODARONE HCL 200 MG TAB PO SCH ×2 (09:49→21:19)
[2019-08-19] MEDS: OXYBUTYNIN CHL 5 MG TAB PO SCH (09:49)
[2019-08-19] MEDS: GABAPENTIN 300 MG CAP PO SCH ×2 (09:49→21:19)
[2019-08-19] MEDS: DAKINS HALF STR 0.25% (NaHypochlorite) 473 ML TOPICAL SOL TOP SCH (09:50)
[2019-08-19 10:23] LABS: INR 1.13 (0.9-1.15); Partial Thromboplastin Time 58.5 sec (23.64-32.05)
[2019-08-19 10:24] LABS: Albumin 1.4 g/dL (3.4-5.0); Calcium 7.3 mg/dL (8.5-10.1); Potassium 3.5 mmol/L (3.5-5.1)
[2019-08-19 10:30] LABS: BUN/Creatinine Ratio 19.3; Bilirubin, Total 0.3 mg/dL (0.2-1.0); Total Protein 5.6 g/dL (6.4-8.2)
[2019-08-19 11:30] VITALS: BP 97/44
[2019-08-19 15:30] VITALS: BP 104/44
[2019-08-19 16:32] LABS: INR 1.11 (0.9-1.15); Partial Thromboplastin Time 57.8 sec (23.64-32.05)
[2019-08-19] MEDS ORDERED: IOHEXOL 300 MG/ML 100ML BOTTLE IJ ONE (16:57)
[2019-08-19 20:00] VITALS: BP 102/48
[2019-08-19] MEDS: ATORVASTATIN 20 MG TAB PO SCH (21:18)
[2019-08-19 22:46] LABS: INR 1.14 (0.9-1.15); Partial Thromboplastin Time 60.4 sec (23.64-32.05)
[2019-08-20] VITALS: BP 109/52
[2019-08-20] MEDS: HYDROmorphone HCL 2 MG/ML VL IV PRN ×5 (00:40→23:29)
[2019-08-20] MEDS: CLINDAMYCIN 600MG IV 50 ML IV SCH ×2 (00:41→07:54)
[2019-08-20] MEDS: MEROPENEM 1GM IVPB 100 ML IV SCH ×3 (03:56→18:14)
[2019-08-20 04:00] VITALS: BP 107/45
[2019-08-20 05:18] LABS: Basophils # (auto) 0 10 ^3/uL (0-0.2); Basophils % (auto) 0.1 % (0.0-2.0); Eosinophils # (auto) 0.2 10 ^3/uL (0-0.8); Eosinophils % (auto) 1.3 % (0.0-7.0); Hematocrit 23.9 % (36.0-46.0); Hemoglobin 7.8 g/dL (12.2-16.2); Lymphocytes % (auto) 7.6 % (10.0-50.0); Mean Corpuscular Hemoglobin 29.4 pg (28.0-32.0); Mean Corpuscular Hgb Conc. 32.5 g/dL (32.0-36.0); Mean Corpuscular Volume 90.3 fL (80.0-100.0); Monocytes # (auto) 0.8 10 ^3/uL (0-1.3); Monocytes % (auto) 6.2 % (0.0-12.0); Neutrophils # (auto) 10.9 10 ^3/uL (1.6-8.6); Neutrophils % (auto) 84.8 % (37.0-80.0); Platelet Count (auto) 453 10^3/uL (140-450); Red Blood Cells 2.65 10^6/uL (4.0-5.20); Red Cell Distribution Width 16.2 % (11.8-14.3); White Blood Cell 12.9 10^3/uL (4.4-10.8)
[2019-08-20 05:34] LABS: BUN/Creatinine Ratio 20.7; Calcium 7.6 mg/dL (8.5-10.1); Potassium 3.5 mmol/L (3.5-5.1)
[2019-08-20] MEDS: ACCU-CHEK COMFORT CURVE STRIP VI SCH ×4 (06:20→21:58)
[2019-08-20] MEDS: InsuLIN REG 1unit/0.01ml Soln (100units/ml) SC SCH ×4 (06:20→22:06)
[2019-08-20 07:36] VITALS: BP 108/54
[2019-08-20] MEDS: GABAPENTIN 300 MG CAP PO SCH ×2 (07:52→21:57)
[2019-08-20] MEDS: HYDROcodone-ACET 5/325MG TAB PO PRN ×2 (07:52→21:58)
[2019-08-20] MEDS: FERROUS SULFATE 325 MG TAB PO SCH (07:53)
[2019-08-20] MEDS: OXYBUTYNIN CHL 5 MG TAB PO SCH (07:53)
[2019-08-20] MEDS: AMIODARONE HCL 200 MG TAB PO SCH ×2 (07:53→21:57)
[2019-08-20] MEDS: DAKINS HALF STR 0.25% (NaHypochlorite) 473 ML TOPICAL SOL TOP SCH (07:54)
[2019-08-20] MEDS ORDERED: ONDANSETRON HCL 4 MG/2 ML VIAL ONE (09:42)
[2019-08-20] MEDS ORDERED: MIDAZOLAM HCL 1MG/1ML-2 ML VIAL ONE (09:42)
[2019-08-20] MEDS ORDERED: KETAMINE HCL 10 ML ONE (09:42)
[2019-08-20] MEDS ORDERED: PROPOFOL 10 MG/ML 20 ML IV ONE (09:42)
[2019-08-20] MEDS ORDERED: SODIUM CHLORIDE LOCK 10 ML ONE (09:42)
[2019-08-20] MEDS ORDERED: MEPERIDINE HCL (25 MG/ML) 1ML VIAL ONE ×2 (09:42→11:10)
[2019-08-20] MEDS ORDERED: MORPHINE SULF INJ 2 MG/ML SYRINGE 1ML IV PRN (10:15)
[2019-08-20] MEDS ORDERED: HYDROmorphone HCL 2 MG/ML VL IV PRN (10:15)
[2019-08-20] MEDS ORDERED: ONDANSETRON HCL 4 MG/2 ML VIAL IV PRN (10:15)
[2019-08-20] MEDS ORDERED: BACITRACIN INJ 50000 UNIT VIAL ONE (10:43)
[2019-08-20 12:00] VITALS: BP 92/54
[2019-08-20] MEDS: SODIUM CHLORIDE 0.9% 1,000 ML IV SCH (14:02)
[2019-08-20 15:01] LABS: Basophils # (auto) 0 10 ^3/uL (0-0.2); Eosinophils # (auto) 0 10 ^3/uL (0-0.8); Eosinophils % (auto) 0.1 % (0.0-7.0); Hematocrit 24.2 % (36.0-46.0); Hemoglobin 7.9 g/dL (12.2-16.2); Lymphocytes # (auto) 0.3 10 ^3/uL (0.4-5.4); Mean Corpuscular Hemoglobin 29.7 pg (28.0-32.0); Mean Corpuscular Hgb Conc. 32.8 g/dL (32.0-36.0); Monocytes # (auto) 0.2 10 ^3/uL (0-1.3)
[2019-08-20 15:02] LABS: Lymphocytes % (auto) 1.9 % (10.0-50.0); Mean Corpuscular Volume 90.5 fL (80.0-100.0); Monocytes % (auto) 1.3 % (0.0-12.0); Neutrophils # (auto) 14.5 10 ^3/uL (1.6-8.6); Neutrophils % (auto) 96.7 % (37.0-80.0); Platelet Count (auto) 451 10^3/uL (140-450); Red Blood Cells 2.68 10^6/uL (4.0-5.20); Red Cell Distribution Width 15.8 % (11.8-14.3)
[2019-08-20] MEDS ORDERED: MICAFUNGIN SODIUM 100 MG in SODIUM CHL 0.9% 100 ML IV ONE (16:30)
[2019-08-20] MEDS: VANCOMYCIN 1GM/250ML 250 ML IV SCH (16:38)
[2019-08-20 16:45] VITALS: BP 101/40
[2019-08-20 20:00] VITALS: BP 119/53
[2019-08-20 21:32] LABS: Albumin 1.5 g/dL (3.4-5.0); BUN/Creatinine Ratio 20.3; Calcium 7.4 mg/dL (8.5-10.1); Potassium 4.5 mmol/L (3.5-5.1)
[2019-08-20 21:34] LABS: Bilirubin, Total 0.3 mg/dL (0.2-1.0); Total Protein 5.8 g/dL (6.4-8.2)
[2019-08-20] MEDS: ATORVASTATIN 20 MG TAB PO SCH (21:57)
[2019-08-21] VITALS: BP 102/49
[2019-08-21] MEDS: MEROPENEM 1GM IVPB 100 ML IV SCH ×3 (02:52→18:37)
[2019-08-21 04:00] VITALS: BP 108/48
[2019-08-21 04:31] LABS: Basophils # (auto) 0 10 ^3/uL (0-0.2); Eosinophils # (auto) 0 10 ^3/uL (0-0.8); Lymphocytes # (auto) 0.4 10 ^3/uL (0.4-5.4); Lymphocytes % (auto) 3.4 % (10.0-50.0); Mean Corpuscular Volume 91.3 fL (80.0-100.0)
[2019-08-21 04:37] LABS: Basophils % (auto) 0.1 % (0.0-2.0); Hematocrit 24.1 % (36.0-46.0); Mean Corpuscular Hemoglobin 30.1 pg (28.0-32.0); Monocytes # (auto) 0.4 10 ^3/uL (0-1.3); Monocytes % (auto) 2.7 % (0.0-12.0); Neutrophils # (auto) 12.4 10 ^3/uL (1.6-8.6); Neutrophils % (auto) 93.8 % (37.0-80.0); Nucleated Red Blood Cells % 0.1 %; Platelet Count (auto) 469 10^3/uL (140-450); Red Blood Cells 2.64 10^6/uL (4.0-5.20); Red Cell Distribution Width 16.6 % (11.8-14.3); White Blood Cell 13.2 10^3/uL (4.4-10.8)
[2019-08-21 04:50] LABS: INR 1.11 (0.9-1.15)
[2019-08-21 04:51] LABS: Potassium 4.6 mmol/L (3.5-5.1)
[2019-08-21 04:59] LABS: Albumin 1.6 g/dL (3.4-5.0); BUN/Creatinine Ratio 23.5; Bilirubin, Total 0.2 mg/dL (0.2-1.0); Calcium 7.5 mg/dL (8.5-10.1); Total Protein 5.9 g/dL (6.4-8.2)
[2019-08-21] MEDS: HYDROmorphone HCL 2 MG/ML VL IV PRN ×3 (06:24→14:18)
[2019-08-21] MEDS: ACCU-CHEK COMFORT CURVE STRIP VI SCH ×4 (06:27→22:10)
[2019-08-21] MEDS: InsuLIN REG 1unit/0.01ml Soln (100units/ml) SC SCH ×5 (06:28→22:34)
[2019-08-21 07:54] VITALS: BP 111/49
[2019-08-21] MEDS: FERROUS SULFATE 325 MG TAB PO SCH (08:16)
[2019-08-21] MEDS ORDERED: HEPARIN DRIP/D5W 100UNITS/ML 250 ML IV SCH (09:00)
[2019-08-21] MEDS: OXYBUTYNIN CHL 5 MG TAB PO SCH (09:34)
[2019-08-21] MEDS: GABAPENTIN 300 MG CAP PO SCH ×2 (09:34→21:11)
[2019-08-21] MEDS: AMIODARONE HCL 200 MG TAB PO SCH ×2 (09:35→21:11)
[2019-08-21] MEDS ORDERED: MICAFUNGIN SODIUM 100 MG in SODIUM CHL 0.9% 100 ML IV SCH (10:00)
[2019-08-21] MEDS: DAKINS HALF STR 0.25% (NaHypochlorite) 473 ML TOPICAL SOL TOP SCH (10:00)
[2019-08-21 11:14] LABS: INR 1.13 (0.9-1.15); Partial Thromboplastin Time 38.2 sec (23.64-32.05)
[2019-08-21 11:53] VITALS: BP 102/39
[2019-08-21] MEDS ORDERED: LIDOCAINE 1% (LOCAL ANESTH.) PF 5ml SDV ID ONE (15:30)
[2019-08-21 16:00] VITALS: BP 93/45
[2019-08-21] MEDS ORDERED: SODIUM CHLORIDE 0.9% 1,000 ML IV ONE (16:00)
[2019-08-21] MEDS ORDERED: AMIO200T4 PO (16:18)
[2019-08-21] MEDS ORDERED: APIX5TAB OR (16:18)
[2019-08-21] MEDS ORDERED: ATOR20TA50 PO (16:18)
[2019-08-21] MEDS: SODIUM CHLORIDE 0.9% 1,000 ML IV SCH (17:15)
[2019-08-21] MEDS: APIXABAN 5 MG TAB PO SCH ×2 (18:37→21:11)
[2019-08-21 20:00] VITALS: BP 114/93
[2019-08-21] MEDS ORDERED: VANCOMYCIN 750mg/250ml 250 ML IV SCH (21:00)
[2019-08-21] MEDS: ATORVASTATIN 20 MG TAB PO SCH (21:11)
[2019-08-21] MEDS: HYDROcodone-ACET 5/325MG TAB PO PRN (21:15)
[2019-08-22] VITALS: BP 130/111
[2019-08-22] MEDS: HYDROcodone-ACET 5/325MG TAB PO PRN ×2 (01:30→08:21)
[2019-08-22] MEDS: MEROPENEM 1GM IVPB 100 ML IV SCH (02:25)
[2019-08-22 03:44] LABS: Basophils # (auto) 0 10 ^3/uL (0-0.2); Eosinophils # (auto) 0.1 10 ^3/uL (0-0.8); Eosinophils % (auto) 0.8 % (0.0-7.0); Monocytes # (auto) 0.8 10 ^3/uL (0-1.3)
[2019-08-22 03:46] LABS: Basophils % (auto) 0.1 % (0.0-2.0); Hematocrit 22.3 % (36.0-46.0); Hemoglobin 7.5 g/dL (12.2-16.2); Mean Corpuscular Hemoglobin 30.3 pg (28.0-32.0); Mean Corpuscular Hgb Conc. 33.9 g/dL (32.0-36.0); Mean Corpuscular Volume 89.6 fL (80.0-100.0); Monocytes % (auto) 9.5 % (0.0-12.0); Neutrophils # (auto) 6.6 10 ^3/uL (1.6-8.6); Neutrophils % (auto) 77.6 % (37.0-80.0); Platelet Count (auto) 481 10^3/uL (140-450); Red Blood Cells 2.49 10^6/uL (4.0-5.20); Red Cell Distribution Width 15.9 % (11.8-14.3); White Blood Cell 8.5 10^3/uL (4.4-10.8)
[2019-08-22 03:56] VITALS: BP 124/44
[2019-08-22 04:04] LABS: BUN/Creatinine Ratio 26.2; Calcium 7.4 mg/dL (8.5-10.1); Potassium 3.7 mmol/L (3.5-5.1)
[2019-08-22] MEDS: ACCU-CHEK COMFORT CURVE STRIP VI SCH (06:56)
[2019-08-22] MEDS: InsuLIN REG 1unit/0.01ml Soln (100units/ml) SC SCH (06:56)
[2019-08-22 07:30] VITALS: BP 106/52
[2019-08-22 07:38] VITALS: BP 106/52
== END 2019-08-22 08:22 | disposition home health service (06) | DRG 853 ==
LOC: EDBD 22:14 → ER 22:17 → TELE 22:18 → ICU WEST 08-12 09:00 → TELE-WESTW 08-13 12:58 → DOU IN ICU 08-15 20:45 → ICU WEST 08-16 10:37 → DOU IN ICU 08-18 16:56
PROVIDERS: ADMIT Hospitalist; ATTEND Hospitalist
PROC: 0KBQ0ZZ Excision of Right Upper Leg Muscle, Open Approach (ICD-10-PCS; principal; 2019-08-17 13:35)
PROC: 0JBL0ZZ Excision of Right Upper Leg Subcutaneous Tissue and Fascia, Open Approach (ICD-10-PCS; 2019-08-20)
DX: A41.9 Sepsis, unspecified organism (principal); R65.21 Severe sepsis with septic shock; M72.6 Necrotizing fasciitis; G93.41 Metabolic encephalopathy; E43 Unspecified severe protein-calorie malnutrition; L03.115 Cellulitis of right lower limb; N17.9 Acute kidney failure, unspecified; N18.4 Chronic kidney disease, stage 4 (severe); N39.0 Urinary tract infection, site not specified; I74.5 Embolism and thrombosis of iliac artery; D62 Acute posthemorrhagic anemia; I47.1 Supraventricular tachycardia; I48.92 Unspecified atrial flutter; K61.1 Rectal abscess; L02.31 Cutaneous abscess of buttock; L03.311 Cellulitis of abdominal wall; T82.514A Breakdown (mechanical) of infusion catheter, initial encounter; E86.0 Dehydration; E66.9 Obesity, unspecified; Z68.36 Body mass index [BMI] 36.0-36.9, adult; E11.42 Type 2 diabetes mellitus with diabetic polyneuropathy; E11.22 Type 2 diabetes mellitus with diabetic chronic kidney disease; E78.5 Hyperlipidemia, unspecified; F17.200 Nicotine dependence, unspecified, uncomplicated; I12.9 Hypertensive chronic kidney disease with stage 1 through stage 4 chronic kidney disease, or unspecified chronic kidney disease; I25.10 Atherosclerotic heart disease of native coronary artery without angina pectoris; I48.91 Unspecified atrial fibrillation; J44.9 Chronic obstructive pulmonary disease, unspecified; Z79.01 Long term (current) use of anticoagulants; Z79.899 Other long term (current) drug therapy; Z82.49 Family history of ischemic heart disease and other diseases of the circulatory system; Z90.710 Acquired absence of both cervix and uterus; Z83.3 Family history of diabetes mellitus; Z95.1 Presence of aortocoronary bypass graft; E11.65 Type 2 diabetes mellitus with hyperglycemia; E27.9 Disorder of adrenal gland, unspecified; D63.8 Anemia in other chronic diseases classified elsewhere; Y71.2 Prosthetic and other implants, materials and accessory cardiovascular devices associated with adverse incidents; Z79.4 Long term (current) use of insulin
CPT/HCPCS: 36415; 70450; 71045; 71260; 74176; 74177; 74181; 76705; 76881; 80048; 80053; 80202; 80320; 81001; 82962; 83036; 83605; 85007; 85025; 85027; 85610; 85730; 86850; 86900; 86901; 87040; 87070; 87075; 87077; 87081; 87086; 87088; 87186; 87205; 93005; 93306; 93926; 95819; 96365; 96367; 96375; 97110; 97163; 97530; G0378; J0330; J0696; J1815; J2185; J2248; J2250; J2405; J2543; J2704; J3480; J3490; J7060

== ENCOUNTER → 2019-08-30 | Emergency (ER) | payer OTHER, MEDICAID ==
[~2019-08-30] VITALS: Ht 165.1 cm; Wt 77.1 kg
[~2019-08-30] MED LIST changes: +AMIO200T4 PO; +APIX5TAB OR; +ATOR20TA50 PO; -DOCU60SY2 PO; -IBUP800T24 PO; +LIDOCAINE 1% (LOCAL ANESTH.) PF 5ml SDV ID ONE; -LISI10TA6 PO
[2019-08-30 11:00] VITALS: BP 157/72
[2019-08-30 11:24] LABS: Basophils # (auto) 0.1 10 ^3/uL (0-0.2); Basophils % (auto) 1.5 % (0.0-2.0); Eosinophils # (auto) 0.5 10 ^3/uL (0-0.8); Eosinophils % (auto) 7.7 % (0.0-7.0); Hematocrit 25.3 % (36.0-46.0); Hemoglobin 8.4 g/dL (12.2-16.2); Lymphocytes # (auto) 1.8 10 ^3/uL (0.4-5.4); Lymphocytes % (auto) 28.7 % (10.0-50.0); Mean Corpuscular Hemoglobin 29.3 pg (28.0-32.0); Mean Corpuscular Hgb Conc. 33.2 g/dL (32.0-36.0); Monocytes # (auto) 0.5 10 ^3/uL (0-1.3); Monocytes % (auto) 8.5 % (0.0-12.0); Neutrophils # (auto) 3.3 10 ^3/uL (1.6-8.6); Neutrophils % (auto) 53.6 % (37.0-80.0); Nucleated Red Blood Cells % 0.2 %; Platelet Count (auto) 445 10^3/uL (140-450); Red Blood Cells 2.87 10^6/uL (4.0-5.20); Red Cell Distribution Width 16.4 % (11.8-14.3); White Blood Cell 6.2 10^3/uL (4.4-10.8)
[2019-08-30 11:38] LABS: INR 1.32 (0.9-1.15); Partial Thromboplastin Time 37.3 sec (23.64-32.05)
== END | disposition home or self-care (01) ==
LOC: ER 10:54
DX: M72.6 Necrotizing fasciitis (principal); M19.90 Unspecified osteoarthritis, unspecified site; I25.10 Atherosclerotic heart disease of native coronary artery without angina pectoris; J44.9 Chronic obstructive pulmonary disease, unspecified; E11.9 Type 2 diabetes mellitus without complications; E78.5 Hyperlipidemia, unspecified; I10 Essential (primary) hypertension
CPT/HCPCS: 36415; 36569; 71045; 85025; 85610; 85730; 99285; C1751; J7050

== ENCOUNTER 2019-09-18 21:09 | Inpatient (IN) | payer OTHER, MEDICAID ==
[~2019-09-18] VITALS: Ht 165.1 cm; Wt 79.0 kg
[~2019-09-18 21:09] MED LIST changes: -LIDOCAINE 1% (LOCAL ANESTH.) PF 5ml SDV ID ONE
[2019-09-18 22:36] LABS: Basophils # (auto) 0 10 ^3/uL (0-0.2); Basophils % (auto) 0.4 % (0.0-2.0); Eosinophils # (auto) 0.3 10 ^3/uL (0-0.8); Eosinophils % (auto) 2.3 % (0.0-7.0); Hematocrit 27.2 % (36.0-46.0); Hemoglobin 8.8 g/dL (12.2-16.2); Lymphocytes # (auto) 1.2 10 ^3/uL (0.4-5.4); Lymphocytes % (auto) 11.3 % (10.0-50.0); Mean Corpuscular Hemoglobin 28.5 pg (28.0-32.0); Mean Corpuscular Hgb Conc. 32.5 g/dL (32.0-36.0); Mean Corpuscular Volume 87.8 fL (80.0-100.0); Monocytes # (auto) 0.7 10 ^3/uL (0-1.3); Monocytes % (auto) 6.1 % (0.0-12.0); Neutrophils # (auto) 8.7 10 ^3/uL (1.6-8.6); Neutrophils % (auto) 79.9 % (37.0-80.0); Nucleated Red Blood Cells % 0.1 %; Platelet Count (auto) 422 10^3/uL (140-450); Red Blood Cells 3.09 10^6/uL (4.0-5.20); Red Cell Distribution Width 17.3 % (11.8-14.3); White Blood Cell 10.9 10^3/uL (4.4-10.8)
[2019-09-18 22:51] LABS: INR 1.2 (0.9-1.15); Partial Thromboplastin Time 40.3 sec (23.64-32.05)
[2019-09-18 22:55] LABS: Albumin 2.9 g/dL (3.4-5.0); Anion Gap 6 (5-15); Blood Urea Nitrogen 13 mg/dL (7-18); Carbon Dioxide 29 mmol/L (21-32); Chloride 104 mmol/L (98-107); Glucose 108 mg/dL (74-106); Magnesium 1.7 mg/dL (1.6-2.6); Potassium 3.5 mmol/L (3.5-5.1); Sodium 139 mmol/L (136-145)
[2019-09-18 23:04] LABS: Alanine Aminotransferase 8 U/L (13-56); Alkaline Phosphatase 102 U/L (45-117); Aspartate Aminotransferase 17 U/L (15-37); BUN/Creatinine Ratio 8.7; Bilirubin, Total 0.3 mg/dL (0.2-1.0); Calcium 8.6 mg/dL (8.5-10.1); GFR African American 44 mL/min; GFR Non-African American 36 mL/min; Total Protein 7.6 g/dL (6.4-8.2)
[2019-09-18 23:51] LABS: Urine Bacteria FEW /hpf (None Seen); Urine Blood 1+ /uL (Negative); Urine Specific Gravity 1.006 (1.001-1.035); Urine WBC 52 /hpf (0 - 5)
[2019-09-19] VITALS (8 sets, daily range): BP systolic 101–144; BP diastolic 52–79
[2019-09-19] MEDS ORDERED: cefTRIAXone 1GM/50ML D5W 50 ML IV ONE (00:15)
[2019-09-19] MEDS ORDERED: ACETAMINOPHEN 325 MG TAB PO PRN (01:00)
[2019-09-19] MEDS ORDERED: ONDANSETRON HCL 4 MG/2 ML VIAL IV PRN (01:00)
[2019-09-19] MEDS ORDERED: TEMAZEPAM 15 MG CAP PO PRN (01:00)
--- NOTE | 2019-09-19 02:10 | NUR ---
MS admit from ER MARY,LYNETTE Gonzalez admitted to MS; no SBAR received. Patient oriented by KYLE ORO, primary RN, to unit, room, bed, and unit policies regarding patient care and visiting hours; will need reinforcement. Patient weighed by bedscale and encouraged to call if she needs something. All questions and concerns addressed, patient verbalized understanding. When administering Tylenol for pain in feet, instead of quantifying pain 1 -10, pt kept repeating "12-12" over and over. 12-12 is the month and day of her birthdate as she had answered when asked this information. Pt able to answer questions appropriately up until that time. Bed low, HOB in semi-Urbina's position. Call light placed at pt's L shoulder as she is on L side.
--- NOTE | 2019-09-19 02:15 | NUR ---
Spoke with Silvestre Cunha, RN, DISTRIBUTION WAREHOUSE MANAGER, hospitalist having paged earlier re. pt's cardiac hx, and syncopal episode causing family of pt to call EMS to transport pt to hospital. Reviewed her cardiac hx and meds asking if pt indeed med/surg and not telemetry. Alphonse replied, "We will keep her Med/Surg."
--- NOTE | 2019-09-19 03:30 | NUR ---
FRANK Treviño, here to do admission of pt, reporting to this nurse that pt not responding. This RN asked if she appeared to be having change in LOC or just deep sleep. This RN went to pt's room to assess her and to do POC BG as ordered for 0400. Pt not responding verbally, only grunting occ. Then coughed with saliva draining from mouth. BG @ 0336 - 16. This RN called out to nurses' station requesting D50 be brought to room while recheck done. FRANK Treviño and FRANK Suero both responded to room with amp of D50 while second BG drawn - 12. D50 pushed by Hudson. Pt slowly becoming responsive; becoming completely responsive immediately as injetion ending. Pt asking what had happened and expressing pleasure that the three nurses responded as was done. Smiling, appropriate. Denies pain.
[2019-09-19] MEDS: ACCU-CHEK COMFORT CURVE STRIP VI SCH ×6 (03:32→21:52)
[2019-09-19] MEDS: InsuLIN REG 1unit/0.01ml Soln (100units/ml) SC SCH ×4 (03:42→20:00)
[2019-09-19] MEDS: DEXTROSE (50%) 50ML SYRG IV PRN ×2 (03:44→09:40)
--- NOTE | 2019-09-19 06:07 | NUR ---
Wound on buttocks swabbed and culture sent to lab. Pt awakened to voice and gentle touch responding appropriately and cooperative. Her dtr, Philip, called and pt gave permission for her to receive information requesting that she bring her phone and breast worker to the hospital. Pt attempting to drop off to sleep.
--- NOTE | 2019-09-19 07:35 | NUR ---
Received patient from [facility] shift rn. Patient asleep at initial encounter. Respiration even and unlabored. Bed in lowest and locked position. Call light and phone within reach. Will continue to monitor and reassess q1hr and prn.
--- NOTE | 2019-09-19 09:30 | NUR ---
Approached patient for reassessment and blood sugar check. patient is not responding to any question or obeying command. respiration is even and unlabored, pulse present. Blood sugar is 13mg/dL. low blood sugar protocol initiated with 50ml of dextrose given IV push.
--- NOTE | 2019-09-19 09:32 | NUR ---
at bedside Code assist initiated new order for 10% dextrose IV at 75ml/hr placed
--- NOTE | 2019-09-19 09:40 | NUR ---
Blood sugar is 176mg/dL upon reassessment Additional IV dextrose 50ml given per MD's order
[2019-09-19] MEDS ORDERED: DEXTROSE 10% 1,000 ML IV ONE (09:45)
[2019-09-19] MEDS ORDERED: DEXTROSE 50% SYRINGE 50 ML IV ONE (09:49)
[2019-09-19] MEDS: GABAPENTIN 300 MG CAP PO SCH ×2 (10:00→21:52)
[2019-09-19] MEDS: AMIODARONE HCL 200 MG TAB PO SCH ×2 (10:00→21:51)
[2019-09-19] MEDS: LISINOPRIL 20 MG TAB PO SCH (10:00)
[2019-09-19] MEDS: APIXABAN 5 MG TAB PO SCH ×2 (10:00→21:52)
--- NOTE | 2019-09-19 10:30 | NUR ---
Current blood sugar is 207 after reassessment. Patient is awake, making sounds without verbal response. Unable to stay calm or to be left without supervision
--- NOTE | 2019-09-19 10:35 | NUR ---
Spoke to daughter multiple times within the hour and gave her updates on mother.
--- NOTE | 2019-09-19 11:00 | NUR ---
ALL PO MEDICATION HELD. PATIENT PLACED ON NPO
--- NOTE | 2019-09-19 11:50 | NUR ---
ASSUMED CARE OF PATIENT AFTER REPORT RECEIVED FROM FRANK NETTLES. PATIENT RESTING IN BED AT THIS TIME. PATIENT MOANING. PATIENT IS APHASIC AT THIS TIME. NO S/S OF SOB OR DISTRESS AT THIS TIME. 10% DEXTROSE RUNNING VIA IV AT 75ML/HR. PATIENT GLUCOSE CHECKED WITH RESULTS OF 166. BED IN LOWEST AND LOCKED POSITION WITH SIDE RAILS UP X2 AND CALL LIGHT IN REACH. SEIZURE PRECAUTIONS IN PLACE. WILL CONTINUE TO MONITOR.
--- NOTE | 2019-09-19 11:54 | NUR ---
WOUND CARE NOTE: Wound care in to see patient per wound care request regarding open wound to Rt buttock that are noted present on admission. Bedside nurse took photograph of patient's wound upon admission for reference. Patient is 74 years old female with admitting diagnosis of Metabolic Encephalopathy, Hypoglycemia. Patient is resting in bed in Rm. 203. Patient is awake, alert and able to verbalize needs. She's in no stated pain at this time and she appears to be in no pain using Castro Mehta Faces Pain Scale. Her Scott score is 14. I Skin/wound assessment done with the assistance of another nurse, FRANK Cook. Noted patient's Rt buttock has 9x4x0.5cm open wound with 3 cm undermining from [id number]. Patient has history of abscess wound to RT buttock. Wound is red with granulation tissue noted. Patient's arrived at bedside and requested dressing changes as NS moistened gauze as she reported per "Doctor Sherman's instruction". Cleansed patient's Rt buttock wound with wound cleanser,patted dry with gauze, covered with NS moistened gauze, and covered with Opti foam gentle dressing. Patient tolerated well, reposition for comfort to her Lt side. Patient's daughter and nurse aide at bedside. RECOMMENDATION: Daily/PRN dressing changes to Rt buttock wound per MD order, Dietary consult for wound, frequent turning and repositioning schedule as condition permits, redistribute pressure points with pillows, continue monitoring by wound care while patient is hospitalized. Addendum: 09/19/19 at 1540 by Olivia Huang RN Amended: Links added.
[2019-09-19] MEDS: MORPHINE SULF INJ 2 MG/ML SYRINGE 1ML IV PRN ×2 (12:42→20:20)
--- NOTE | 2019-09-19 13:00 | NUR ---
IV insertion IV access obtained, via clean sterile technique by inserting 22 gauge catheter at LEFT FA after 1 attempt(s). IV secured properly. No trauma to site. Patient tolerated well.
[2019-09-19] MEDS: cefTRIAXone 1GM/50ML D5W 50 ML IV SCH (15:08)
--- NOTE | 2019-09-19 16:00 | NUR ---
SPOKE TO DR. SHORE AND UPDATED DR. SHORE ON THE PATIENTS HEAD CT RESULTS. MD AWARE AND NO NEW ORDERS RECEIVED AT THIS TIME.
--- NOTE | 2019-09-19 16:00 | NUR ---
PATIENT ORIENTATION. PATIENT IS ASLEEP AND EASY TO AROUSE. PT ORIENTED X1. PT SLOW TO RESPOND TO QUESTIONS. PATIENT IS ABLE TO STATE HER NAME AND VERBALIZE DISCOMFORT UPON MOVEMENT. NO S/S OF DISTRESS OR SOB AT THIS TIME. BED IN LOWEST AND LOCKED POSITION WITH SIDE RAILS UP X2 AND CALL LIGHT IN REACH. WILL CONTINUE TO MONITOR.
--- NOTE | 2019-09-19 17:03 | NUR ---
SPOKE TO DR. SHORE. NEW ORDERS RECEIVED, READ BACK AND VERIFIED. SEE EMR FOR ORDERS.
--- NOTE | 2019-09-19 19:30 | NUR ---
Opening Shift Note Assumed care of patient, awake and alert. Patient is alert and oriented to name, place and situation. No S/S of distress/SOB. Instructed on POC and to call for assist PRN, will continue to monitor for changes Q1hr and PRN.
--- NOTE | 2019-09-19 21:00 | NUR ---
PT HAD TEMP AT 101.0. PERFORMED COOLING MEASURES. NO PRN AVAILABLE AT THIS TIME DUE TO NPO STATUS. WILL RECHECK AND CONTINUE TO MONITOR.
[2019-09-19] MEDS ORDERED: LORazepam 2MG/ML-1ML VIAL IV PRN (22:00)
[2019-09-19] MEDS ORDERED: ATORVASTATIN 20 MG TAB PO SCH (22:00)
[2019-09-19] MEDS: ATORVASTATIN 20 MG TAB PO SCH (22:00)
--- NOTE | 2019-09-19 22:43 | NUR ---
TEMP STILL AT 101.7. PAGED DR. SHORE'S EXCHANGE. RECEIVED ORDER FOR SUPPOSITORY TYLENOL 650MG Q6HR PRN. WILL ADMINISTER AND CONTINUE TO MONITOR.
[2019-09-19] MEDS ORDERED: ACETAMINOPHEN 650 MG RECT SUPP PR PRN (22:45)
[2019-09-20] MEDS: ACCU-CHEK COMFORT CURVE STRIP VI SCH ×12 (00:03→22:01)
[2019-09-20] MEDS ORDERED: DEXTROSE 10% 1,000 ML IV ONE (00:15)
--- NOTE | 2019-09-20 00:25 | NUR ---
PT BLOOD SUGAR TRENDING DOWN (NOW 90). PAGED AND SPOKE TO DR. MONTEIRO FOR CONTINUATION OF D10 AT 75 ML/HR. ALSO PT IS INCONTINENT AND UNABLE TO OBTAIN URINE CULTURE, RECEIVED ORDER FOR ONE TIME ORDER TO STRAIGHT CATH PATIENT. ALSO, LAST TEMP FOR PATIENT WAS 99.8.
[2019-09-20] MEDS: InsuLIN REG 1unit/0.01ml Soln (100units/ml) SC SCH ×6 (03:50→19:47)
[2019-09-20 05:00] VITALS: BP 132/67
[2019-09-20 07:11] LABS: Basophils # (auto) 0 10 ^3/uL (0-0.2); Eosinophils # (auto) 0.3 10 ^3/uL (0-0.8); Lymphocytes # (auto) 1.6 10 ^3/uL (0.4-5.4); Neutrophils % (auto) 57.1 % (37.0-80.0)
[2019-09-20 07:18] LABS: Basophils % (auto) 0.6 % (0.0-2.0); Eosinophils % (auto) 4.3 % (0.0-7.0); Hematocrit 25.1 % (36.0-46.0); Hemoglobin 8.3 g/dL (12.2-16.2); Lymphocytes % (auto) 27.9 % (10.0-50.0); Mean Corpuscular Hemoglobin 28.8 pg (28.0-32.0); Mean Corpuscular Hgb Conc. 33.2 g/dL (32.0-36.0); Mean Corpuscular Volume 86.9 fL (80.0-100.0); Monocytes # (auto) 0.6 10 ^3/uL (0-1.3); Monocytes % (auto) 10.1 % (0.0-12.0); Neutrophils # (auto) 3.3 10 ^3/uL (1.6-8.6); Platelet Count (auto) 394 10^3/uL (140-450); Red Blood Cells 2.89 10^6/uL (4.0-5.20); Red Cell Distribution Width 17.2 % (11.8-14.3); White Blood Cell 5.8 10^3/uL (4.4-10.8)
--- NOTE | 2019-09-20 07:30 | NUR ---
Opening Shift Note Assumed care of patient, Pt asleep at this time and arouses to light touch and name. Pt alert and oriented x3. Pt is communicating verbally. No S/S of distress/SOB or pain. Bed in lowest and locked position with side rails up x2 and call light in reach. Bed alarm is on. Instructed on POC and to call for assist PRN, will continue to monitor for changes Q1hr and PRN.
[2019-09-20 07:31] LABS: BUN/Creatinine Ratio 4.2; Calcium 8.4 mg/dL (8.5-10.1); Magnesium 1.6 mg/dL (1.6-2.6); Potassium 3.4 mmol/L (3.5-5.1)
[2019-09-20 08:00] VITALS: BP 115/44
[2019-09-20 09:00] VITALS: BP 115/44
[2019-09-20] MEDS: LISINOPRIL 20 MG TAB PO SCH (10:00)
[2019-09-20] MEDS: GABAPENTIN 300 MG CAP PO SCH ×2 (10:00→20:18)
[2019-09-20] MEDS: cefTRIAXone 1GM/50ML D5W 50 ML IV SCH (10:03)
[2019-09-20] MEDS: AMIODARONE HCL 200 MG TAB PO SCH ×2 (11:05→22:01)
[2019-09-20] MEDS: APIXABAN 5 MG TAB PO SCH ×2 (11:06→22:01)
[2019-09-20] MEDS: MORPHINE SULF INJ 2 MG/ML SYRINGE 1ML IV PRN ×3 (11:08→22:39)
--- NOTE | 2019-09-20 12:30 | NUR ---
SPOKE TO DR. SHORE. NEW ORDERS RECEIVED, READ BACK AND VERIFIED. SEE EMR FOR ORDERS.
[2019-09-20 12:49] VITALS: BP 121/66
--- NOTE | 2019-09-20 13:15 | NUR ---
RETURNED TO EVALUATE SWALLOW AND PER NURSING AND PATIENT NO SIGNS OR SYMPTOMS OF DYSPHAGIA. NO SWALLOW EVALUATION AT THIS TIME.
[2019-09-20] MEDS: DEXTROSE 10% 1,000 ML IV SCH (13:33)
--- NOTE | 2019-09-20 14:16 | NUR ---
Nutrition Assessment/consult Notes please see attached link for complete assessment Est Energy needs BW 77 [id number] kcals (23-25 kcal/kgBW), Est Protein needs: 77-92 gms/day (1.0-1.2 gm/kgBW). Will continue to monitor and reassess prn. Addendum: 09/20/19 at [address] Amended: Links added.
[2019-09-20 17:00] VITALS: BP 102/57
--- NOTE | 2019-09-20 17:00 | NUR ---
WOUND CARE DRESSING CHANGED TO RIGHT BUTTOCK WOUND.
--- NOTE | 2019-09-20 18:00 | NUR ---
GLUCOSE ASSESSMENT PATIENTS GLUCOSE RESULTS READ 153. THIS IS THE THIRD READING ABOVE 150. DECREASED DEXTROSE 10% FROM 75ML/HR TO 50ML/HR PER MD ORDERS.
--- NOTE | 2019-09-20 19:30 | NUR ---
Opening Shift Note Assumed care of patient, awake and alert, standing at bedside, appears stable on her feet, with IV fluid D10W at 50ml/hr. No S/S of distress/SOB or pain. Instructed on POC and to call for assist PRN, will continue to monitor for changes Q1hr and PRN. Assisted back on bed, right buttock dressing is intact.
[2019-09-20] MEDS: ATORVASTATIN 20 MG TAB PO SCH (20:19)
[2019-09-20 22:00] VITALS: BP 109/53
[2019-09-21] MEDS: ACCU-CHEK COMFORT CURVE STRIP VI SCH ×9 (00:15→16:28)
[2019-09-21] MEDS: DEXTROSE 10% 1,000 ML IV SCH ×2 (02:05→07:37)
[2019-09-21] MEDS: InsuLIN REG 1unit/0.01ml Soln (100units/ml) SC SCH ×5 (04:00→16:00)
[2019-09-21 05:00] VITALS: BP_SYST 110; BP_SYST 121; BP_DIAS 61; BP_DIAS 74
[2019-09-21 06:16] LABS: Eosinophils # (auto) 0.3 10 ^3/uL (0-0.8); Hemoglobin 7.6 g/dL (12.2-16.2); Lymphocytes # (auto) 1.9 10 ^3/uL (0.4-5.4); Monocytes # (auto) 0.6 10 ^3/uL (0-1.3); Neutrophils # (auto) 2.7 10 ^3/uL (1.6-8.6)
[2019-09-21 06:18] LABS: Basophils # (auto) 0 10 ^3/uL (0-0.2); Basophils % (auto) 0.8 % (0.0-2.0); Hematocrit 22.7 % (36.0-46.0); Lymphocytes % (auto) 35.5 % (10.0-50.0); Mean Corpuscular Hemoglobin 28.8 pg (28.0-32.0); Mean Corpuscular Hgb Conc. 33.4 g/dL (32.0-36.0); Monocytes % (auto) 10.1 % (0.0-12.0); Neutrophils % (auto) 48.6 % (37.0-80.0); Platelet Count (auto) 379 10^3/uL (140-450); Red Blood Cells 2.64 10^6/uL (4.0-5.20); Red Cell Distribution Width 17.4 % (11.8-14.3); White Blood Cell 5.5 10^3/uL (4.4-10.8)
[2019-09-21 06:37] LABS: Calcium 8.1 mg/dL (8.5-10.1); Magnesium 1.5 mg/dL (1.6-2.6); Potassium 3.2 mmol/L (3.5-5.1)
[2019-09-21 06:40] LABS: BUN/Creatinine Ratio 5.8
[2019-09-21] MEDS: cefTRIAXone 1GM/50ML D5W 50 ML IV SCH (08:40)
[2019-09-21] MEDS: LISINOPRIL 20 MG TAB PO SCH (08:41)
[2019-09-21] MEDS: APIXABAN 5 MG TAB PO SCH (08:42)
[2019-09-21] MEDS: GABAPENTIN 300 MG CAP PO SCH (08:42)
[2019-09-21] MEDS: AMIODARONE HCL 200 MG TAB PO SCH (08:42)
[2019-09-21 09:00] VITALS: BP 124/56
--- NOTE | 2019-09-21 09:30 | NUR ---
IV insertion IV access obtained, via clean sterile technique by inserting 22 gauge catheter at left forearm after 2 attempts. IV secured properly. No trauma to site. Patient tolerated procedure well.
--- NOTE | 2019-09-21 09:35 | NUR ---
IV removal IV right wrist DC'd with sterile technique, catheter fully intact. Pressure dressing applied to site. Patient tolerated procedure well. Discharged with aftercare instructions per MD. NOTE:
[2019-09-21] MEDS: MORPHINE SULF INJ 2 MG/ML SYRINGE 1ML IV PRN (11:23)
--- NOTE | 2019-09-21 11:54 | NUR ---
EEG- ELECTROENCEPHALOGRAM COMPLETED ON 09/21/2019.
[2019-09-21] MEDS ORDERED: POTASSIUM CHL 20 Meq TABLET PO ONE (12:15)
[2019-09-21 12:54] VITALS: BP 114/52
--- NOTE | 2019-09-21 13:00 | NUR ---
Dr. Brown in to see patient as primary MD.
[2019-09-21] MEDS: MAGNESIUM SULFATE 1GM/100ML 100 ML IV SCH ×3 (13:24→15:08)
[2019-09-21] MEDS ORDERED: GABAPENTIN 300 MG CAP PO SCH (14:00)
--- NOTE | 2019-09-21 14:00 | NUR ---
Discharge wound photo taken.
--- NOTE | 2019-09-21 14:01 | NUR ---
Patient states she takes her gabapentin three times per day, requesting a dose now. Page placed to Dr. Brown.
[2019-09-21 14:41] VITALS: BP 124/56
--- NOTE | 2019-09-21 15:53 | NUR ---
Home health info faxed to [facility] and [employer]. Will continue to monitor.
[2019-09-21 17:00] VITALS: BP 102/52
== END 2019-09-21 18:35 | disposition home health service (06) | DRG 637 ==
LOC: EDBD 21:09 → ER 21:12 → OVERFLOW 21:13 → CENTRAL 09-19 02:10 → TELE-CENTR 09-19 10:19
PROVIDERS: ADMIT Nurse Practitioner; ATTEND Internal Medicine
DX: E11.649 Type 2 diabetes mellitus with hypoglycemia without coma (principal); G93.41 Metabolic encephalopathy; N39.0 Urinary tract infection, site not specified; E44.0 Moderate protein-calorie malnutrition; D68.9 Coagulation defect, unspecified; I12.9 Hypertensive chronic kidney disease with stage 1 through stage 4 chronic kidney disease, or unspecified chronic kidney disease; N17.0 Acute kidney failure with tubular necrosis; N18.9 Chronic kidney disease, unspecified; J44.9 Chronic obstructive pulmonary disease, unspecified; E78.5 Hyperlipidemia, unspecified; I25.10 Atherosclerotic heart disease of native coronary artery without angina pectoris; M19.90 Unspecified osteoarthritis, unspecified site; E11.22 Type 2 diabetes mellitus with diabetic chronic kidney disease; G89.4 Chronic pain syndrome; Z79.899 Other long term (current) drug therapy; Z90.710 Acquired absence of both cervix and uterus; Z95.1 Presence of aortocoronary bypass graft; Z83.3 Family history of diabetes mellitus; Z80.42 Family history of malignant neoplasm of prostate; Z86.73 Personal history of transient ischemic attack (TIA), and cerebral infarction without residual deficits; Z68.28 Body mass index [BMI] 28.0-28.9, adult
CPT/HCPCS: 36415; 70450; 70551; 71045; 80048; 80053; 81001; 82962; 83036; 83735; 83880; 84484; 85025; 85610; 85730; 87040; 87077; 87086; 87186; 87205; 93005; 93886; 95819; 96365; 97163; 97530; G0378; J0696

== ENCOUNTER 2019-09-29 12:07 | Inpatient (IN) | payer OTHER, MEDICAID ==
[~2019-09-29] VITALS: Ht 165.1 cm; Wt 74.7 kg
[2019-09-29] MEDS ORDERED: SODIUM CHLORIDE 0.9% 1,000 ML IVB ONE (12:45)
[2019-09-29] MEDS ORDERED: PROMETHAZINE HCL 25 MG/ML 1ML IV PRN (12:45)
[2019-09-29 13:43] LABS: Basophils # (auto) 0 10 ^3/uL (0-0.2); Eosinophils # (auto) 0 10 ^3/uL (0-0.8); Eosinophils % (auto) 0.7 % (0.0-7.0); Red Blood Cells 2.67 10^6/uL (4.0-5.20); Red Cell Distribution Width 18.3 % (11.8-14.3)
[2019-09-29 13:46] LABS: Basophils % (auto) 0.7 % (0.0-2.0); Hematocrit 23.4 % (36.0-46.0); Hemoglobin 7.6 g/dL (12.2-16.2); Lymphocytes % (auto) 18.3 % (10.0-50.0); Mean Corpuscular Hemoglobin 28.3 pg (28.0-32.0); Mean Corpuscular Hgb Conc. 32.3 g/dL (32.0-36.0); Mean Corpuscular Volume 87.8 fL (80.0-100.0); Monocytes # (auto) 0.6 10 ^3/uL (0-1.3); Monocytes % (auto) 9.9 % (0.0-12.0); Neutrophils % (auto) 70.4 % (37.0-80.0); Nucleated Red Blood Cells % 0.1 %; Platelet Count (auto) 321 10^3/uL (140-450); White Blood Cell 5.6 10^3/uL (4.4-10.8)
[2019-09-29 14:00] LABS: Alanine Aminotransferase 19 U/L (13-56); Albumin 2.7 g/dL (3.4-5.0); Anion Gap 5 (5-15); Blood Urea Nitrogen 7 mg/dL (7-18); Calcium 8.3 mg/dL (8.5-10.1); Carbon Dioxide 24 mmol/L (21-32); Chloride 110 mmol/L (98-107); Glucose 151 mg/dL (74-106); Lipase 95 U/L (73-393); Magnesium 1.9 mg/dL (1.6-2.6); Potassium 3.2 mmol/L (3.5-5.1); Sodium 139 mmol/L (136-145)
[2019-09-29 14:05] LABS: Alkaline Phosphatase 141 U/L (45-117); Aspartate Aminotransferase 56 U/L (15-37); BUN/Creatinine Ratio 6.6; Bilirubin, Total 0.4 mg/dL (0.2-1.0); GFR African American 65 mL/min; GFR Non-African American 54 mL/min; Total Protein 6.9 g/dL (6.4-8.2)
[2019-09-29 14:24] LABS: Urine Bacteria FEW /hpf (None Seen); Urine Blood 1+ /uL (Negative); Urine Specific Gravity 1.007 (1.001-1.035); Urine WBC 67 /hpf (0 - 5)
[2019-09-29] MEDS ORDERED: POTASSIUM EFFERVESENT TAB 25 MEQ PO ONE (16:00)
[2019-09-29] MEDS ORDERED: cefTRIAXone 1GM/50ML D5W 50 ML IV ONE (16:00)
[2019-09-29] MEDS ORDERED: NITROGLYCERIN 0.4 MG SL TAB SL PRN (18:15)
[2019-09-29] MEDS ORDERED: LORazepam 0.5 MG TAB PO PRN (18:15)
[2019-09-29] MEDS ORDERED: ALUM & MAG HYDROX-SIMETH LIQ(MAALOX) 30 ML PO PRN (18:15)
[2019-09-29] MEDS ORDERED: DOCUSATE SOD 100 MG CAP PO PRN (18:15)
[2019-09-29] MEDS ORDERED: VANCOMYCIN PER PHARMACY 0 MG IV SCH (18:15)
[2019-09-29] MEDS ORDERED: ALENDRONATE SODIUM 10 MG TAB PO SCH (18:15)
[2019-09-29] MEDS ORDERED: MORPHINE SULF INJ 2 MG/ML SYRINGE 1ML IV PRN (18:15)
[2019-09-29] MEDS ORDERED: hydrALAZINE HCL 20 MG/ML VL IV PRN (18:15)
[2019-09-29] MEDS: SOD CHL 0.45% 1,000 ML IV SCH (19:14)
[2019-09-29] MEDS: ACETAMINOPHEN 325 MG TAB PO PRN (19:15)
[2019-09-29 19:41] LABS: Cholesterol 117 mg/dL (< 200); HDL Cholesterol 42 mg/dL (40-59); LDL Cholesterol 55 mg/dL (< 100); Triglycerides 127 mg/dL (< 150)
[2019-09-29] MEDS: VANCOMYCIN 1GM/250ML 250 ML IV SCH (20:30)
[2019-09-29] MEDS: HYDROcodone-ACET 5/325MG TAB PO PRN (21:16)
[2019-09-29] MEDS: LATANOPROST 0.005 % OPTH(EYE) SOL 2.5ML EACHEYE SCH ×2 (22:00→23:00)
[2019-09-29] MEDS: GABAPENTIN 300 MG CAP PO SCH (22:00)
[2019-09-29] MEDS: CARVEDILOL 3.125 MG TAB PO SCH (22:00)
[2019-09-29] MEDS: OXYBUTYNIN CHL 5 MG TAB PO SCH (22:00)
[2019-09-29] MEDS: APIXABAN 5 MG TAB PO SCH (22:00)
[2019-09-29] MEDS: MEROPENEM 1GM IVPB 100 ML IV SCH (22:00)
[2019-09-29] MEDS: ATORVASTATIN 20 MG TAB PO SCH (22:00)
[2019-09-29] MEDS: AMIODARONE HCL 200 MG TAB PO SCH (22:00)
[2019-09-30] VITALS (9 sets, daily range): BP systolic 102–125; BP diastolic 47–84
--- NOTE | 2019-09-30 01:45 | NUR ---
Patient from ER to Unit Patient is AOx4, with no signs of distress or SOB. Patient complains of pain in back and given pain medication as prescribed. Patient safety measures in place w/ HOB at 30 degrees, and call light within reach. Bed locked in lowest position.
[2019-09-30] MEDS: HYDROcodone-ACET 5/325MG TAB PO PRN ×3 (03:21→23:47)
[2019-09-30 05:38] LABS: Basophils # (auto) 0 10 ^3/uL (0-0.2); Eosinophils # (auto) 0 10 ^3/uL (0-0.8); Monocytes # (auto) 0.5 10 ^3/uL (0-1.3); Neutrophils # (auto) 1.6 10 ^3/uL (1.6-8.6); Nucleated Red Blood Cells % 0.1 %; White Blood Cell 3.1 10^3/uL (4.4-10.8)
[2019-09-30 05:40] LABS: Basophils % (auto) 0.8 % (0.0-2.0); Eosinophils % (auto) 1.1 % (0.0-7.0); Hematocrit 21.1 % (36.0-46.0); Lymphocytes % (auto) 31.9 % (10.0-50.0); Mean Corpuscular Hemoglobin 28.5 pg (28.0-32.0); Mean Corpuscular Hgb Conc. 32.8 g/dL (32.0-36.0); Monocytes % (auto) 15.6 % (0.0-12.0); Neutrophils % (auto) 50.6 % (37.0-80.0); Platelet Count (auto) 275 10^3/uL (140-450); Red Blood Cells 2.43 10^6/uL (4.0-5.20); Red Cell Distribution Width 17.7 % (11.8-14.3)
[2019-09-30 05:50] LABS: INR 1.21 (0.9-1.15); Partial Thromboplastin Time 37.3 sec (23.64-32.05)
[2019-09-30 05:54] LABS: Hemoglobin 6.9 g/dL (12.2-16.2)
[2019-09-30 05:57] LABS: Albumin 2.3 g/dL (3.4-5.0); Calcium 7.9 mg/dL (8.5-10.1); Magnesium 1.8 mg/dL (1.6-2.6); Potassium 3.5 mmol/L (3.5-5.1)
--- NOTE | 2019-09-30 06:01 | NUR ---
Critical Lab Value for HGB 2.9 Hospitalist paged.
[2019-09-30 06:02] LABS: BUN/Creatinine Ratio 5.2; Bilirubin, Total 0.3 mg/dL (0.2-1.0); Phosphorus 3.2 mg/dL (2.5-4.90); Total Protein 6.1 g/dL (6.4-8.2)
[2019-09-30] MEDS: FUROSEMIDE 20 MG/2 ML VIAL IV SCH ×2 (06:59→18:13)
[2019-09-30] MEDS: MEROPENEM 1GM IVPB 100 ML IV SCH ×3 (06:59→22:02)
--- NOTE | 2019-09-30 07:30 | NUR ---
Opening Shift Note Assumed care of patient, awake and alert. A&Ox4. Patient was laying in bed. No S/S of distress/SOB or pain. Safety measures maintained by keeping the bed in locked and in lowest position, 2 side rails up, items and call light within reach. Instructed on POC and to call for assist PRN, will continue to monitor for changes Q1hr and PRN.
[2019-09-30] MEDS: GABAPENTIN 300 MG CAP PO SCH ×2 (08:54→22:07)
[2019-09-30] MEDS: FERROUS SULFATE 325 MG TAB PO SCH ×3 (08:54→18:13)
[2019-09-30] MEDS: APIXABAN 5 MG TAB PO SCH (08:55)
[2019-09-30] MEDS: OXYBUTYNIN CHL 5 MG TAB PO SCH ×2 (08:55→22:06)
[2019-09-30] MEDS: POTASSIUM CHL 20 Meq TABLET PO SCH (08:55)
[2019-09-30] MEDS: LISINOPRIL 20 MG TAB PO SCH (10:00)
[2019-09-30] MEDS: AMIODARONE HCL 200 MG TAB PO SCH ×2 (10:00→22:06)
[2019-09-30] MEDS: CARVEDILOL 3.125 MG TAB PO SCH ×2 (10:00→22:00)
--- NOTE | 2019-09-30 10:14 | NUR ---
WOUND CARE NOTE: WOUND CARE IN TO SEE PATIENT PER WOUND CARE REQUEST. PATIENT ADMITTED TO [facility] FOR SUSPECTED SEVERE SEPSIS SECONDARY TO ACUTE PYELONEPHRITIS. BEDSIDE NURSE NOTED SKIN INTEGRITY ISSUE UPON ADMISSION. PHOTOGRAPHS TAKEN AT THAT TIME FOR REFERENCE. PATIENT DALJIT SCORE IS 15. PATIENT NOTED TO HAVE OPEN ABSCESS TO RIGHT INNER BUTTOCK. PATIENT HAS A HISTORY OF ABSCESS TO THE RIGHT INNER BUTTOCK. WOUND CLEANSED WITH NORMAL SALINE, PATTED DRY WITH STERILE GAUZE, NORMAL SALINE MOISTENED 2x2 GAUZE APPLIED, COVERED WITH OPTIFOAM GENTLE DRESSING. RECOMMEND: BID/PRN DRESSING CHANGE. FREQUENT Q2HOUR REPOSITIONING CONDITION PERMITS. REDISTRIBUTE PRESSURE USING PILLOWS AND WEDGES. SKIN/WOUND CARE PLAN. CONTINUED MONITORING BY WOUND CARE TEAM. Addendum: 09/30/19 at 1528 by STEPHANIA DANIELS RN RN Amended: Links added.
[2019-09-30] MEDS: SOD CHL 0.45% 1,000 ML IV SCH (10:41)
[2019-09-30] MEDS: VANCOMYCIN 1GM/250ML 250 ML IV SCH (12:26)
[2019-09-30 12:29] LABS: Free T3 2.73 pg/mL (2.3-4.2); Free T4 (Free Thyroxine) 1.21 ng/dL (0.89-1.76)
[2019-09-30] MEDS: MORPHINE SULF INJ 2 MG/ML SYRINGE 1ML IV PRN ×2 (12:42→20:40)
[2019-09-30 13:14] LABS: % Iron Saturation 17.1 % (15-50)
[2019-09-30 15:10] LABS: Urine Bacteria FEW /hpf (None Seen); Urine Blood 2+ /uL (Negative); Urine Specific Gravity 1.009 (1.001-1.035); Urine WBC 4 /hpf (0 - 5)
[2019-09-30 15:20] LABS: Amphetamine Screen, Urine NEGATIVE (NEGATIVE); Barbiturate Scree,Urine NEGATIVE (NEGATIVE); Benzodiazephine Screen, Urine NEGATIVE (NEGATIVE); Cannabinoid Screen, Urine NEGATIVE (NEGATIVE); Cocaine Screen, Urine NEGATIVE (NEGATIVE)
[2019-09-30 15:28] LABS: Opiate Scree,Urine POSITIVE (NEGATIVE); Phencyclidine Screen, Urine NEGATIVE (NEGATIVE)
[2019-09-30] MEDS: ACETAMINOPHEN 325 MG TAB PO PRN (16:53)
--- NOTE | 2019-09-30 18:30 | NUR ---
BLOOD TRANSFUSION STARTED PT HAD BEEN RUNNING A TEMPERATURE ALL DAY SINCE BEFORE TRANSFUSION. SHE HAD GIVEN A TYLENOL AND NONE IS DUE AT THIS TIME. I CALLED DR Josefina SWANSON AND LEFT A MESSAGE ON HIS ANSWERING SERVICE TO INFORM HIM OF PATIENT'S TEMP. ALSO INFORMED PART TIME FLEXIBLE CLERK. WAITING FOR CALL BACK. TEMP PRIOR TO TRANSFUSION: 101.3 TEMP NOW: 100.2 PT RESTING COMFORTABLY. DENIES PAIN OR SOB. NO DISTRESS NOTED.
--- NOTE | 2019-09-30 19:35 | NUR ---
Opening Shift Note Assumed care of patient, awake and alert. No S/S of distress/SOB or pain. Instructed on POC and to call for assist PRN, patient verbalized understanding, call light within reach, will continue to monitor for changes Q1hr and PRN.
--- NOTE | 2019-09-30 21:30 | NUR ---
Blood transfusion finished, no BT reaction noted
--- NOTE | 2019-09-30 21:45 | NUR ---
Patient found on the floor, floor was wet with urine. Per patient, she slid down slowly and hold on to siderails. Per patient, she did not hit her head or buttocks. No complains of pain at this time, will continue to monitor
--- NOTE | 2019-09-30 21:50 | NUR ---
Reinforced patient to call whenever using the bedside commode, patient verbalized understanding. Bed in lowest and locked position, bed alarm on, call light within reach, will continue to monitor
[2019-09-30] MEDS: LATANOPROST 0.005 % OPTH(EYE) SOL 2.5ML EACHEYE SCH (22:00)
--- NOTE | 2019-09-30 22:00 | NUR ---
THEE Hurt made aware of patient's fall
[2019-09-30] MEDS: ATORVASTATIN 20 MG TAB PO SCH (22:07)
--- NOTE | 2019-09-30 23:40 | NUR ---
Paged Dr. Josefina Moran/Dr. Srivastava's exchange and left a message. Gave updates on patient's status and fall event.
--- NOTE | 2019-09-30 23:54 | NUR ---
Compa Chapman made aware of patient's fall
[2019-10-01] VITALS (8 sets, daily range): BP systolic 91–134; BP diastolic 39–60
[2019-10-01] MEDS: ACETAMINOPHEN 325 MG TAB PO PRN (00:51)
--- NOTE | 2019-10-01 02:08 | NUR ---
2nd unit of PRBC transfused after verified by primary RN and 2nd RN Hudson, will monitor for BT reaction
[2019-10-01] MEDS: SOD CHL 0.45% 1,000 ML IV SCH ×2 (03:21→20:58)
[2019-10-01] MEDS: VANCOMYCIN 1GM/250ML 250 ML IV SCH ×2 (04:10→20:53)
--- NOTE | 2019-10-01 05:00 | NUR ---
2nd unit of blood transfused, no BT reaction noted, will continue to monitor
[2019-10-01] MEDS: MEROPENEM 1GM IVPB 100 ML IV SCH ×3 (06:05→22:07)
[2019-10-01] MEDS: FUROSEMIDE 20 MG/2 ML VIAL IV SCH (06:05)
--- NOTE | 2019-10-01 07:25 | NUR ---
Opening Shift Note Assumed care of patient, awake and alert. Patient was sitting up in bed. No S/S of distress/SOB or pain. Updated on POC and instructed to call for assistance as needed, patient verbalized understanding. Bed locked in lowest position, side rails up x2, call light within reach. Safety precautions in place and bed alarm is on. Will continue to monitor for changes Q1hr and PRN.
[2019-10-01] MEDS: GABAPENTIN 300 MG CAP PO SCH ×2 (09:09→21:32)
[2019-10-01] MEDS: OXYBUTYNIN CHL 5 MG TAB PO SCH ×2 (09:09→21:31)
[2019-10-01] MEDS: AMIODARONE HCL 200 MG TAB PO SCH ×2 (09:09→21:32)
[2019-10-01] MEDS: LISINOPRIL 20 MG TAB PO SCH (09:09)
[2019-10-01] MEDS: POTASSIUM CHL 20 Meq TABLET PO SCH (09:09)
[2019-10-01] MEDS: CARVEDILOL 3.125 MG TAB PO SCH ×2 (09:09→21:32)
[2019-10-01] MEDS: FERROUS SULFATE 325 MG TAB PO SCH ×3 (09:10→18:57)
[2019-10-01 09:38] LABS: Basophils # (auto) 0 10 ^3/uL (0-0.2); Basophils % (auto) 0.8 % (0.0-2.0); Eosinophils # (auto) 0 10 ^3/uL (0-0.8); Eosinophils % (auto) 1.1 % (0.0-7.0); Hematocrit 33.8 % (36.0-46.0); Hemoglobin 10.9 g/dL (12.2-16.2); Lymphocytes # (auto) 1.8 10 ^3/uL (0.4-5.4); Lymphocytes % (auto) 47.5 % (10.0-50.0); Mean Corpuscular Hgb Conc. 32.2 g/dL (32.0-36.0); Monocytes # (auto) 0.4 10 ^3/uL (0-1.3); Neutrophils # (auto) 1.5 10 ^3/uL (1.6-8.6); Neutrophils % (auto) 39.6 % (37.0-80.0); Nucleated Red Blood Cells % 0.3 %; Platelet Count (auto) 307 10^3/uL (140-450); Red Blood Cells 3.75 10^6/uL (4.0-5.20); Red Cell Distribution Width 17.4 % (11.8-14.3); White Blood Cell 3.8 10^3/uL (4.4-10.8)
[2019-10-01 12:00] LABS: BUN/Creatinine Ratio 5.8; Calcium 8.6 mg/dL (8.5-10.1); Potassium 3.4 mmol/L (3.5-5.1)
[2019-10-01] MEDS: HYDROcodone-ACET 5/325MG TAB PO PRN ×2 (13:34→19:11)
--- NOTE | 2019-10-01 13:36 | NUR ---
stool sample sent to lab
[2019-10-01] MEDS ORDERED: POTASSIUM CHL 20MEQ/100ML 100 ML IV ONE (14:15)
[2019-10-01] MEDS ORDERED: DEXTROSE (50%) 50ML SYRG IV PRN (14:30)
[2019-10-01] MEDS ORDERED: ALBUTEROL SULF 2.5 MG/0.5ML(0.5%) NEB SOLN NEB PRN (14:30)
[2019-10-01] MEDS ORDERED: THROAT LOZENGES(CEPASTAT) MT PRN (15:15)
[2019-10-01] MEDS: PANTOPRAZOLE 40 MG TAB PO SCH (16:18)
[2019-10-01] MEDS: MORPHINE SULF INJ 2 MG/ML SYRINGE 1ML IV PRN ×2 (16:18→21:34)
[2019-10-01] MEDS: ACCU-CHEK COMFORT CURVE STRIP VI SCH ×2 (16:35→21:33)
[2019-10-01] MEDS: InsuLIN REG 1unit/0.01ml Soln (100units/ml) SC SCH ×2 (16:35→21:32)
--- NOTE | 2019-10-01 16:56 | NUR ---
URINE SAMPLE SENT TO LAB
--- NOTE | 2019-10-01 19:15 | NUR ---
Opening Shift Note Received report from FRANK Brush and assumed care of patient, awake and alert. No S/S of distress/SOB or pain. Instructed patient to call for assist if needed and patient verbalized understanding . Will continue to monitor .
--- NOTE | 2019-10-01 20:20 | NUR ---
Respiratory note: PT ASSESSED FOR PRN MED NEB TX. HR 66, RR 16, SPO2 97% ON 2L NC. NO S/S OF ANY RESPIRATORY DISTRESS NOTED. ADVISED PT TO CALL IF TX IS NEEDED.
[2019-10-01] MEDS: ATORVASTATIN 20 MG TAB PO SCH (21:32)
--- NOTE | 2019-10-01 21:34 | NUR ---
Called/paged Patient having itchiness in her arm after Morphine administered .Dr. Torres called re:itchiness. New order received.D/C IV Morphine. Benadryl 50mg PO ordered. Continue care.
[2019-10-01] MEDS: LATANOPROST 0.005 % OPTH(EYE) SOL 2.5ML EACHEYE SCH (22:00)
[2019-10-01] MEDS ORDERED: diphenhdrAMINE HCL 25 MG CAP PO ONE (22:00)
--- NOTE | 2019-10-01 23:44 | NUR ---
SPOKE TO GRANDDAUGHTER - JACIEL REGARDING UPDATE OF PATIENT. SHE WOULD LIKE TO BE CALLED BY THE PHYSICIAN REGARDING POC .
[2019-10-02 01:06] VITALS: BP 139/60
[2019-10-02] MEDS: HYDROcodone-ACET 10/325MG TAB PO PRN ×3 (03:13→22:35)
--- NOTE | 2019-10-02 03:13 | NUR ---
Pain medication: Patient c/o pain in her bilateral lower ext and back. Pain scale 8/10. [place] 10/325 PO given .Continue care.
[2019-10-02 05:00] VITALS: BP 124/52
[2019-10-02 05:47] LABS: Basophils # (auto) 0 10 ^3/uL (0-0.2); Basophils % (auto) 0.6 % (0.0-2.0); Eosinophils # (auto) 0.1 10 ^3/uL (0-0.8); Eosinophils % (auto) 1.6 % (0.0-7.0); Hematocrit 29.6 % (36.0-46.0); Lymphocytes # (auto) 1.5 10 ^3/uL (0.4-5.4); Mean Corpuscular Hemoglobin 29.9 pg (28.0-32.0); Mean Corpuscular Hgb Conc. 33.7 g/dL (32.0-36.0); Mean Corpuscular Volume 88.8 fL (80.0-100.0); Monocytes # (auto) 0.4 10 ^3/uL (0-1.3); Monocytes % (auto) 8.1 % (0.0-12.0); Neutrophils # (auto) 2.7 10 ^3/uL (1.6-8.6); Neutrophils % (auto) 57.7 % (37.0-80.0); Nucleated Red Blood Cells % 0.4 %; Platelet Count (auto) 253 10^3/uL (140-450); Red Blood Cells 3.33 10^6/uL (4.0-5.20); Red Cell Distribution Width 17.4 % (11.8-14.3); White Blood Cell 4.7 10^3/uL (4.4-10.8)
[2019-10-02] MEDS: MEROPENEM 1GM IVPB 100 ML IV SCH (06:05)
[2019-10-02] MEDS: InsuLIN REG 1unit/0.01ml Soln (100units/ml) SC SCH ×4 (06:13→23:03)
[2019-10-02] MEDS: ACCU-CHEK COMFORT CURVE STRIP VI SCH ×4 (06:14→23:03)
[2019-10-02 06:21] LABS: BUN/Creatinine Ratio 6.8; Calcium 7.8 mg/dL (8.5-10.1); Potassium 3.9 mmol/L (3.5-5.1)
--- NOTE | 2019-10-02 07:43 | NUR ---
Opening Shift Note Assumed care of patient, awake and alert. No S/S of distress/SOB or pain. Instructed on POC and to call for assist PRN, will continue to monitor for changes Q1hr and PRN.
[2019-10-02] MEDS: FERROUS SULFATE 325 MG TAB PO SCH ×3 (08:40→17:50)
[2019-10-02 09:00] VITALS: BP 108/54
[2019-10-02] MEDS: AMIODARONE HCL 200 MG TAB PO SCH ×2 (10:12→22:31)
[2019-10-02] MEDS: OXYBUTYNIN CHL 5 MG TAB PO SCH ×2 (10:12→22:32)
[2019-10-02] MEDS: CARVEDILOL 3.125 MG TAB PO SCH ×2 (10:12→22:32)
[2019-10-02] MEDS: PANTOPRAZOLE 40 MG TAB PO SCH (10:13)
[2019-10-02] MEDS: POTASSIUM CHL 20 Meq TABLET PO SCH (10:13)
[2019-10-02] MEDS: GABAPENTIN 300 MG CAP PO SCH ×2 (10:13→22:33)
[2019-10-02] MEDS: LISINOPRIL 20 MG TAB PO SCH (10:13)
[2019-10-02] MEDS: VANCOMYCIN 1GM/250ML 250 ML IV SCH (12:32)
[2019-10-02 13:00] VITALS: BP 102/44
[2019-10-02] MEDS ORDERED: LINE1TAB10 PO (13:21)
[2019-10-02] MEDS ORDERED: CAR3125T PO (15:45)
[2019-10-02] MEDS ORDERED: FER325T PO (15:45)
[2019-10-02] MEDS ORDERED: ASPI-231 PO (15:45)
[2019-10-02] MEDS ORDERED: LISI-646 PO (15:45)
[2019-10-02] MEDS: LINEZOLID 600MG/300ML 300 ML IV SCH ×2 (15:54→22:31)
[2019-10-02] MEDS: SOD CHL 0.45% 1,000 ML IV SCH (15:55)
--- NOTE | 2019-10-02 16:24 | NUR ---
I SPOKE WITH SKY ZUNIGA, REGARDING TALKING TO DR TIPTON. DR TIPTON CLEARED PATIENT TO START ASA, I PLACED A CALL TO DR CERON TO VERIFIY IF PATIENT SHOULD STAT ON ASA. AWAITING CALL BACK.
[2019-10-02 16:43] VITALS: BP 110/55
--- NOTE | 2019-10-02 18:55 | NUR ---
PT ASSESSED FOR PRN MED NEB TX. SPO2 93% ON RA, HR 66. PT DENIES ANY RESPIRATORY DISTRESS. NO TX INDICATED. PT IS AWARE TO HAVE RT PAGED IF TX NEEDED.
[2019-10-02] MEDS: ONDANSETRON HCL 4 MG/2 ML VIAL IV PRN (20:13)
[2019-10-02] MEDS: ACETAMINOPHEN 325 MG TAB PO PRN (20:13)
[2019-10-02 22:00] VITALS: BP 123/61
[2019-10-02] MEDS: LATANOPROST 0.005 % OPTH(EYE) SOL 2.5ML EACHEYE SCH ×2 (22:00→22:30)
--- NOTE | 2019-10-02 22:00 | NUR ---
Sacral dressing changed. Wound draining purulent discharge. Patient tolerated it well. Care continued.
[2019-10-02] MEDS: ATORVASTATIN 20 MG TAB PO SCH (22:32)
[2019-10-03 05:00] VITALS: BP 100/54
[2019-10-03] MEDS: SOD CHL 0.45% 1,000 ML IV SCH ×2 (06:03→23:13)
[2019-10-03] MEDS: InsuLIN REG 1unit/0.01ml Soln (100units/ml) SC SCH ×4 (06:04→23:50)
[2019-10-03] MEDS: ACCU-CHEK COMFORT CURVE STRIP VI SCH ×4 (06:04→23:13)
--- NOTE | 2019-10-03 07:31 | NUR ---
Opening Shift Note Assumed care of patient, awake and alert. No S/S of distress/SOB, reports mild leg and wound pain. Instructed on POC and to call for assist PRN, will continue to monitor for changes Q1hr and PRN.
[2019-10-03 08:37] LABS: Basophils # (auto) 0 10 ^3/uL (0-0.2); Basophils % (auto) 0.6 % (0.0-2.0); Eosinophils # (auto) 0.1 10 ^3/uL (0-0.8); Eosinophils % (auto) 1.5 % (0.0-7.0); Hemoglobin 10.7 g/dL (12.2-16.2); Lymphocytes # (auto) 1.3 10 ^3/uL (0.4-5.4); Lymphocytes % (auto) 35.4 % (10.0-50.0); Mean Corpuscular Hgb Conc. 32.4 g/dL (32.0-36.0); Mean Corpuscular Volume 89.3 fL (80.0-100.0); Monocytes # (auto) 0.3 10 ^3/uL (0-1.3); Monocytes % (auto) 7.9 % (0.0-12.0); Neutrophils % (auto) 54.6 % (37.0-80.0); Nucleated Red Blood Cells % 0.3 %; Platelet Count (auto) 245 10^3/uL (140-450); Red Cell Distribution Width 18.2 % (11.8-14.3); White Blood Cell 3.7 10^3/uL (4.4-10.8)
[2019-10-03 08:59] LABS: BUN/Creatinine Ratio 7.9; Calcium 8.2 mg/dL (8.5-10.1); Potassium 4.1 mmol/L (3.5-5.1)
[2019-10-03 09:19] VITALS: BP 118/56
[2019-10-03] MEDS: FERROUS SULFATE 325 MG TAB PO SCH ×3 (09:31→17:42)
[2019-10-03] MEDS: AMIODARONE HCL 200 MG TAB PO SCH ×2 (09:32→23:24)
[2019-10-03] MEDS: LINEZOLID 600MG/300ML 300 ML IV SCH ×2 (09:32→23:25)
[2019-10-03] MEDS: PANTOPRAZOLE 40 MG TAB PO SCH (09:33)
[2019-10-03] MEDS: GABAPENTIN 300 MG CAP PO SCH ×2 (09:33→23:18)
[2019-10-03] MEDS: OXYBUTYNIN CHL 5 MG TAB PO SCH ×2 (09:33→23:18)
[2019-10-03] MEDS: CARVEDILOL 3.125 MG TAB PO SCH ×2 (09:33→23:24)
[2019-10-03] MEDS: POTASSIUM CHL 20 Meq TABLET PO SCH (09:33)
[2019-10-03] MEDS: LISINOPRIL 20 MG TAB PO SCH (09:34)
--- NOTE | 2019-10-03 12:24 | NUR ---
RT NOTE: PRN BREATHING TX. NOT INDICATED AT THIS TIME. PT. DENIES ANY SOB. PT. HR 68, RR 16, POX 93% R/A. PT. AWARE TO NOTIFY RN IF BREATHING TX. IS NEEDED.
[2019-10-03 12:41] VITALS: BP 111/54
[2019-10-03] MEDS: HYDROcodone-ACET 10/325MG TAB PO PRN ×2 (14:14→23:50)
[2019-10-03 16:38] VITALS: BP 151/56
[2019-10-03] MEDS: levoFLOXacin 500MG 100 ML IV SCH (17:41)
[2019-10-03 22:00] VITALS: BP 112/54
[2019-10-03] MEDS: LATANOPROST 0.005 % OPTH(EYE) SOL 2.5ML EACHEYE SCH (22:00)
[2019-10-03] MEDS: ATORVASTATIN 20 MG TAB PO SCH (23:18)
[2019-10-04 05:00] VITALS: BP 97/48
[2019-10-04 05:30] LABS: Basophils # (auto) 0 10 ^3/uL (0-0.2); Basophils % (auto) 0.3 % (0.0-2.0); Eosinophils # (auto) 0 10 ^3/uL (0-0.8); Eosinophils % (auto) 0.7 % (0.0-7.0); Hematocrit 27.7 % (36.0-46.0); Hemoglobin 9.4 g/dL (12.2-16.2); Lymphocytes # (auto) 1.3 10 ^3/uL (0.4-5.4); Lymphocytes % (auto) 42.3 % (10.0-50.0); Mean Corpuscular Hemoglobin 30.1 pg (28.0-32.0); Mean Corpuscular Hgb Conc. 33.9 g/dL (32.0-36.0); Mean Corpuscular Volume 88.8 fL (80.0-100.0); Monocytes # (auto) 0.3 10 ^3/uL (0-1.3); Monocytes % (auto) 9.1 % (0.0-12.0); Neutrophils # (auto) 1.5 10 ^3/uL (1.6-8.6); Neutrophils % (auto) 47.6 % (37.0-80.0); Nucleated Red Blood Cells % 0.4 %; Platelet Count (auto) 204 10^3/uL (140-450); Red Blood Cells 3.11 10^6/uL (4.0-5.20); Red Cell Distribution Width 17.4 % (11.8-14.3); White Blood Cell 3.2 10^3/uL (4.4-10.8)
[2019-10-04 05:46] LABS: Calcium 7.9 mg/dL (8.5-10.1); Potassium 3.9 mmol/L (3.5-5.1)
[2019-10-04 05:48] LABS: BUN/Creatinine Ratio 8.6
[2019-10-04] MEDS: ACCU-CHEK COMFORT CURVE STRIP VI SCH ×4 (06:36→23:11)
[2019-10-04] MEDS: InsuLIN REG 1unit/0.01ml Soln (100units/ml) SC SCH ×5 (06:36→22:00)
[2019-10-04] MEDS: HYDROcodone-ACET 10/325MG TAB PO PRN (06:50)
--- NOTE | 2019-10-04 07:10 | NUR ---
OPENING NOTE Assumed care of patient at 0700. Respiratory sounds clear, equal bilaterally and unlabored. Patient verbalized that she is having mild general pain at this time and that this is a tolerable pain level at this time. Updated patient on POC. Side rails up x 2, bed locked in lowest position, HOB elevated at least 30 degrees and call light is within reach. Will continue to monitor.
--- NOTE | 2019-10-04 07:41 | NUR ---
PRN MN TX NOT INDICATED AT THIS TIME. PT IS AWAKE, ALERT AND ORIENTED. PT ON RA, 96% O2 SATS, HR 61 BPM, RR18 BPM, BS ARE CLEAR TO AUSCULTATION. RESPIRATION IS EVEN AND NON LABORED. PT DENIES SOB OR ANY OTHER RESPIRATORY DISTRESS. PT INSTRUCTED TO CALL IF MN TX IS INDICATED. TP VERBALIZED UNDERSTANDING. WILL CONTINUE TO MONITOR PT.
[2019-10-04] MEDS: FERROUS SULFATE 325 MG TAB PO SCH ×3 (08:16→18:00)
[2019-10-04] MEDS: levoFLOXacin 500MG 100 ML IV SCH (08:41)
[2019-10-04 09:00] VITALS: BP 90/44
--- NOTE | 2019-10-04 09:35 | NUR ---
0900 10/04/19 - Contacted [facility] traffic and transport planner at [phone] to discuss patient's ability to get Iv ABX po (Linezolid) when discharged. Per traffic and transport planner, provider needs to give patient the prescription, patient will need to take to pharmacy to see how much med will cost.
[2019-10-04] MEDS: GABAPENTIN 300 MG CAP PO SCH ×2 (10:00→23:11)
[2019-10-04] MEDS: PANTOPRAZOLE 40 MG TAB PO SCH (10:00)
[2019-10-04] MEDS: POTASSIUM CHL 20 Meq TABLET PO SCH (10:00)
[2019-10-04] MEDS: OXYBUTYNIN CHL 5 MG TAB PO SCH ×2 (10:00→23:10)
[2019-10-04] MEDS: CARVEDILOL 3.125 MG TAB PO SCH (10:00)
[2019-10-04] MEDS: LINEZOLID 600MG/300ML 300 ML IV SCH ×2 (10:00→23:09)
[2019-10-04] MEDS: AMIODARONE HCL 200 MG TAB PO SCH ×2 (10:00→23:10)
[2019-10-04] MEDS: LISINOPRIL 20 MG TAB PO SCH (11:08)
[2019-10-04] MEDS: ONDANSETRON HCL 4 MG/2 ML VIAL IV PRN (11:33)
--- NOTE | 2019-10-04 11:40 | NUR ---
DRESSING CHANGE Administered dressing change to right buttock per orders.
--- NOTE | 2019-10-04 12:01 | NUR ---
Assessment Studio Owner spoke with pt per initial assessment. Pt is a 74 yr old AA female admitted for sepsis. She has a hx of cad, copd, dm. Pt was a/a/ox4, receptive to ss visit. Pt is on 2L o2 at home, she also has a nebulizer. She was independent with adl's prior to admission. Pr resides with her daughter Bonnie [phone] and 3 grand daughters who are supportive and assist pt at home. Her pcp is Dr. Jiménez. Pt does not have POA/ahcd. Studio Owner informed pt of benefits of ahcd. Plan is for pt to dc home with family, home health as needed. Addendum: 10/04/19 at 1206 by BELEN SAHU Amended: Links added.
[2019-10-04 13:00] VITALS: BP 103/55
--- NOTE | 2019-10-04 13:05 | NUR ---
Spoke to Dr. eliza Moran regarding patients antibiotic at home. states he already sent it in to the pharmacy.
--- NOTE | 2019-10-04 15:15 | NUR ---
Dr. Soriano recommended Aspirin 81 mg daily and Eliquis 2.5 mg BID, Dr. Josefina Moran aware.
--- NOTE | 2019-10-04 15:23 | NUR ---
Est energy needs 3072-3151 kcal (25-27 kcal/kg BW 74.7kg) Est protein needs 60-75g (0.8-1g/kg BW 74.7kg) Will reassess marion. Addendum: 10/04/19 at [address] Amended: Links added.
--- NOTE | 2019-10-04 16:21 | NUR ---
re-assessment Per consult home health wound care and safety. Patient was on with [facility]. MD order was sent to [facility]. Per Kayla at [facility] they accepted patient back to service starting 10/07/2019. Addendum: 10/08/19 at 1123 by Netta Phan Amended: Links added.
[2019-10-04 17:06] VITALS: BP 118/57
--- NOTE | 2019-10-04 18:56 | NUR ---
Patient to start back on Eliquis tonight. Amiodarone, carvedilol and lisinopril held at 10am due to BP 90/[address] Josefina Moran informed. Amiodarone given po as ordered at [address] Moran.
--- NOTE | 2019-10-04 20:00 | NUR ---
Respiratory note: PT ASSESSED FOR PRN MED NEB TX. HR 60, RR 18, SPO2 96% ON 2L NC. NO S/S OF ANY RESPIRATORY DISTRESS NOTED. ADVISED PT TO CALL IF TX IS NEEDED.
[2019-10-04 22:00] VITALS: BP 106/50
[2019-10-04] MEDS: LATANOPROST 0.005 % OPTH(EYE) SOL 2.5ML EACHEYE SCH (22:00)
--- NOTE | 2019-10-04 22:00 | NUR ---
Sacral dressing changed as ordered. Wound draining minimal serosanguineous discharge. Patient tolerated it well. Care continued.
[2019-10-04] MEDS: APIXABAN 5 MG TAB PO SCH (23:10)
[2019-10-04] MEDS: ATORVASTATIN 20 MG TAB PO SCH (23:11)
[2019-10-05 04:54] VITALS: BP 106/50
[2019-10-05 05:00] VITALS: BP 107/55
[2019-10-05 06:43] LABS: Basophils # (auto) 0 10 ^3/uL (0-0.2); Basophils % (auto) 0.3 % (0.0-2.0); Eosinophils # (auto) 0 10 ^3/uL (0-0.8); Eosinophils % (auto) 0.6 % (0.0-7.0); Hemoglobin 9.6 g/dL (12.2-16.2); Lymphocytes # (auto) 1.5 10 ^3/uL (0.4-5.4); Lymphocytes % (auto) 45.1 % (10.0-50.0); Mean Corpuscular Hemoglobin 29.4 pg (28.0-32.0); Mean Corpuscular Volume 89.2 fL (80.0-100.0); Monocytes # (auto) 0.3 10 ^3/uL (0-1.3); Monocytes % (auto) 8.6 % (0.0-12.0); Neutrophils # (auto) 1.5 10 ^3/uL (1.6-8.6); Neutrophils % (auto) 45.4 % (37.0-80.0); Nucleated Red Blood Cells % 0.1 %; Platelet Count (auto) 189 10^3/uL (140-450); Red Blood Cells 3.25 10^6/uL (4.0-5.20); Red Cell Distribution Width 17.7 % (11.8-14.3); White Blood Cell 3.3 10^3/uL (4.4-10.8)
[2019-10-05 06:53] LABS: Calcium 8.1 mg/dL (8.5-10.1); Potassium 4.2 mmol/L (3.5-5.1)
[2019-10-05] MEDS: InsuLIN REG 1unit/0.01ml Soln (100units/ml) SC SCH ×3 (07:00→16:46)
--- NOTE | 2019-10-05 07:15 | NUR ---
Report given to FRANK Santiago.
[2019-10-05] MEDS: ACCU-CHEK COMFORT CURVE STRIP VI SCH ×3 (07:19→16:46)
--- NOTE | 2019-10-05 07:20 | NUR ---
Opening Shift Note Assumed care of patient, awake and alert. No S/S of distress/SOB, reports leg and body pain. Instructed on POC and to call for assist PRN, will continue to monitor for changes Q1hr and PRN.
[2019-10-05] MEDS: HYDROcodone-ACET 10/325MG TAB PO PRN ×2 (07:21→18:36)
[2019-10-05 08:30] VITALS: BP 109/46
[2019-10-05] MEDS: FERROUS SULFATE 325 MG TAB PO SCH ×3 (09:39→16:46)
[2019-10-05] MEDS: LINEZOLID 600MG/300ML 300 ML IV SCH (09:39)
[2019-10-05] MEDS: levoFLOXacin 500MG 100 ML IV SCH (09:39)
[2019-10-05] MEDS: AMIODARONE HCL 200 MG TAB PO SCH (09:40)
[2019-10-05] MEDS: APIXABAN 5 MG TAB PO SCH (09:40)
[2019-10-05] MEDS: OXYBUTYNIN CHL 5 MG TAB PO SCH (09:40)
[2019-10-05] MEDS: GABAPENTIN 300 MG CAP PO SCH (09:40)
[2019-10-05] MEDS: PANTOPRAZOLE 40 MG TAB PO SCH (09:41)
[2019-10-05 13:10] VITALS: BP 93/47
[2019-10-05 17:10] VITALS: BP 91/49
--- NOTE | 2019-10-05 17:15 | NUR ---
MANUAL BP TAKEN 118/60, MD NOTIFIED.
[2019-10-05] MEDS ORDERED: APIX5TAB OR (17:34)
--- NOTE | 2019-10-05 18:13 | NUR ---
Respiratory note: ASSESSED PT FOR PRN MED NEB AT THIS TIME, PT DENIES SOB AT THIS TIME, NO RESP DISTRESS NOTED, NO TX INDICATED. PULSE OX 96% ON RA, HR 63, RR 18, BILATERAL BS CLEAR.
--- NOTE | 2019-10-05 19:50 | NUR ---
Dr Soriano Paged regarding clearance for DC
--- NOTE | 2019-10-05 20:03 | NUR ---
Dr Soriano returned page and stated that the patient is cleared for discharge.
[2019-10-05 20:35] VITALS: BP 90/44
--- NOTE | 2019-10-05 21:13 | NUR ---
Patient discharged home Patient wheeled down via wheelchair with all patient belonging. Instructed patient that she will need to machine operator picker new prescriptions from her pharmacy. Explained discharge packet. Instructed to make follow up appointments with her PCP and telegraph repeater installer once the offices open. Patient verbalized understanding. Tele and IV removed. Patient had no S/S of distress during discharge.
[2019-10-16] MEDS ORDERED: GLIM1TAB3 PO (11:43)
== END 2019-10-05 21:13 | disposition home health service (06) | DRG 871 ==
LOC: EDBD 12:07 → ER 12:07 → TELE 12:08 → TELE-CENTR 09-30 01:46
PROVIDERS: ADMIT Hospitalist; ATTEND Internal Medicine
PROC: 30233N1 Transfusion of Nonautologous Red Blood Cells into Peripheral Vein, Percutaneous Approach (ICD-10-PCS; principal; 2019-09-30)
DX: A41.9 Sepsis, unspecified organism (principal); N17.0 Acute kidney failure with tubular necrosis; I48.19 Other persistent atrial fibrillation; N39.0 Urinary tract infection, site not specified; I48.92 Unspecified atrial flutter; J98.11 Atelectasis; J90 Pleural effusion, not elsewhere classified; E44.0 Moderate protein-calorie malnutrition; L02.31 Cutaneous abscess of buttock; N18.3 Chronic kidney disease, stage 3 (moderate); E11.22 Type 2 diabetes mellitus with diabetic chronic kidney disease; G89.4 Chronic pain syndrome; F17.200 Nicotine dependence, unspecified, uncomplicated; E87.6 Hypokalemia; I25.10 Atherosclerotic heart disease of native coronary artery without angina pectoris; R04.0 Epistaxis; E05.90 Thyrotoxicosis, unspecified without thyrotoxic crisis or storm; D63.8 Anemia in other chronic diseases classified elsewhere; I12.9 Hypertensive chronic kidney disease with stage 1 through stage 4 chronic kidney disease, or unspecified chronic kidney disease; J44.9 Chronic obstructive pulmonary disease, unspecified; D50.9 Iron deficiency anemia, unspecified; E11.65 Type 2 diabetes mellitus with hyperglycemia; E66.9 Obesity, unspecified; E78.5 Hyperlipidemia, unspecified; F41.9 Anxiety disorder, unspecified; Z79.01 Long term (current) use of anticoagulants; Z90.710 Acquired absence of both cervix and uterus; Z95.1 Presence of aortocoronary bypass graft; Z68.27 Body mass index [BMI] 27.0-27.9, adult
CPT/HCPCS: 36415; 70450; 71045; 80048; 80053; 80061; 80202; 80307; 81001; 82270; 82728; 82962; 83036; 83540; 83550; 83690; 83735; 84100; 84439; 84443; 84481; 84484; 85025; 85610; 85730; 86850; 86900; 86901; 86920; 87040; 87077; 87081; 87086; 87088; 87186; 87205; 93005; 96365; 96368; G0378; J0696; J1956; J2185; J2405; J3480

== ENCOUNTER 2019-10-16 03:53 | Inpatient (IN) | payer OTHER, MEDICAID ==
[~2019-10-16] VITALS: Ht 167.6 cm; Wt 72.5 kg
[~2019-10-16 03:53] MED LIST changes: +ASPI-231 PO; +FER325T PO; -FERR325T50 PO; +LINE1TAB10 PO
[2019-10-16] MEDS ORDERED: SODIUM CHLORIDE 0.9% 1,000 ML IV ONE ×2 (04:45→05:15)
[2019-10-16] MEDS ORDERED: SODIUM CHLORIDE 0.9% 2,000 ML IV ONE (04:45)
[2019-10-16 06:48] LABS: Basophils # (auto) 0 10 ^3/uL (0-0.2); Basophils % (auto) 0.3 % (0.0-2.0); Eosinophils # (auto) 0.1 10 ^3/uL (0-0.8); Eosinophils % (auto) 1.1 % (0.0-7.0); Hematocrit 31.2 % (36.0-46.0); Hemoglobin 9.8 g/dL (12.2-16.2); Lymphocytes # (auto) 1.4 10 ^3/uL (0.4-5.4); Lymphocytes % (auto) 15.9 % (10.0-50.0); Mean Corpuscular Hemoglobin 28.4 pg (28.0-32.0); Mean Corpuscular Hgb Conc. 31.2 g/dL (32.0-36.0); Mean Corpuscular Volume 90.9 fL (80.0-100.0); Monocytes # (auto) 0.9 10 ^3/uL (0-1.3); Monocytes % (auto) 10.1 % (0.0-12.0); Neutrophils # (auto) 6.4 10 ^3/uL (1.6-8.6); Neutrophils % (auto) 72.6 % (37.0-80.0); Platelet Count (auto) 283 10^3/uL (140-450); Red Blood Cells 3.43 10^6/uL (4.0-5.20); Red Cell Distribution Width 18.5 % (11.8-14.3); White Blood Cell 8.9 10^3/uL (4.4-10.8)
[2019-10-16 07:12] LABS: Potassium 4.9 mmol/L (3.5-5.1)
[2019-10-16 07:16] LABS: INR 1.52 (0.9-1.15)
[2019-10-16 07:25] LABS: Albumin 2.5 g/dL (3.4-5.0); BUN/Creatinine Ratio 11.7; Bilirubin, Total 0.4 mg/dL (0.2-1.0); Total Protein 7.1 g/dL (6.4-8.2)
[2019-10-16 07:44] LABS: Urine Amorphous Crystal FEW /hpf (None Seen); Urine Bacteria NONE SEEN /hpf (None Seen); Urine Blood 2+ /uL (Negative); Urine Hyaline Cast MOD /lpf (0 - 2); Urine Specific Gravity 1.018 (1.001-1.035); Urine WBC 10 /hpf (0 - 5)
[2019-10-16] MEDS ORDERED: DOPamine 1600MCG/ML D5W 250 ML IV ONE (08:30)
[2019-10-16] MEDS ORDERED: ACETAMINOPHEN 325 MG TAB PO PRN (09:30)
[2019-10-16] MEDS ORDERED: NITROGLYCERIN 0.4 MG SL TAB SL PRN (09:30)
[2019-10-16] MEDS ORDERED: MORPHINE SULF INJ 2 MG/ML SYRINGE 1ML IV PRN (09:30)
[2019-10-16] MEDS ORDERED: SODIUM CHLORIDE 0.9% 1,000 ML IV SCH (09:30)
[2019-10-16] MEDS ORDERED: ONDANSETRON HCL 4 MG/2 ML VIAL IV PRN (09:30)
[2019-10-16] MEDS ORDERED: NOREPINEPHRINE 8 MG/250ML KIT 250 ML IV ONE (09:32)
[2019-10-16] MEDS: NOREPINEPHRINE 8 MG/250ML KIT 250 ML IV SCH (09:40)
[2019-10-16] MEDS ORDERED: OXYB5TAB61 PO (11:39)
[2019-10-16] MEDS ORDERED: CARV3.1240 PO (11:39)
[2019-10-16] MEDS ORDERED: DICL1GEL50 TD (11:39)
[2019-10-16] MEDS ORDERED: LISI-646 PO (11:39)
[2019-10-16] MEDS: SODIUM CHLORIDE 0.9% 1,000 ML IV SCH ×2 (11:40→20:25)
[2019-10-16] MEDS: cefTRIAXone 1GM/50ML D5W 50 ML IV SCH (11:40)
[2019-10-16] MEDS ORDERED: AMLO5TAB15 PO (11:42)
[2019-10-16] MEDS ORDERED: ALEN35TA18 PO (11:42)
[2019-10-16] MEDS ORDERED: GLIM-5 PO (11:43)
[2019-10-16] MEDS ORDERED: PRAV20TA3 PO (11:57)
[2019-10-17] MEDS: HYDROcodone-ACET 5/325MG TAB PO PRN ×3 (05:43→14:36)
[2019-10-17] MEDS: SODIUM CHLORIDE 0.9% 1,000 ML IV SCH ×3 (05:43→22:51)
[2019-10-17 05:54] LABS: Basophils # (auto) 0 10 ^3/uL (0-0.2); Basophils % (auto) 0.2 % (0.0-2.0); Eosinophils # (auto) 0.3 10 ^3/uL (0-0.8); Eosinophils % (auto) 2.5 % (0.0-7.0); Hematocrit 29.7 % (36.0-46.0); Hemoglobin 9.6 g/dL (12.2-16.2); Lymphocytes # (auto) 1.6 10 ^3/uL (0.4-5.4); Lymphocytes % (auto) 16.3 % (10.0-50.0); Mean Corpuscular Hemoglobin 28.9 pg (28.0-32.0); Mean Corpuscular Hgb Conc. 32.2 g/dL (32.0-36.0); Mean Corpuscular Volume 89.6 fL (80.0-100.0); Monocytes % (auto) 9.6 % (0.0-12.0); Neutrophils # (auto) 7.1 10 ^3/uL (1.6-8.6); Neutrophils % (auto) 71.4 % (37.0-80.0); Platelet Count (auto) 351 10^3/uL (140-450); Red Blood Cells 3.31 10^6/uL (4.0-5.20); Red Cell Distribution Width 18.2 % (11.8-14.3); White Blood Cell 9.9 10^3/uL (4.4-10.8)
[2019-10-17 06:17] LABS: Albumin 2.4 g/dL (3.4-5.0); Calcium 8.2 mg/dL (8.5-10.1); Magnesium 2.3 mg/dL (1.6-2.6); Potassium 4.8 mmol/L (3.5-5.1)
[2019-10-17 06:22] LABS: BUN/Creatinine Ratio 16.7; Bilirubin, Total 0.4 mg/dL (0.2-1.0); Total Protein 6.8 g/dL (6.4-8.2)
[2019-10-17] MEDS: NOREPINEPHRINE 8 MG/250ML KIT 250 ML IV SCH ×2 (09:38→22:23)
[2019-10-17] MEDS: cefTRIAXone 1GM/50ML D5W 50 ML IV SCH (10:11)
--- NOTE | 2019-10-17 11:30 | NUR ---
WOUND CARE NOTE: Wound care in to see patient per wound care request regarding Rt gluteal wound that are noted present on admission. ED nurse took photograph of patient's wound upon admission for reference. Patient is 74 years old female with admitting diagnosis of Gen Weakness, Hypotension. Patient is resting in ED bed #12. Patient is awake, alert and oriented. Patient is in no stated pain at this time however mild pain noted upon turning using Castro Mehta Faces Pain Scale. She's able to assist in turning and repositioning. Her Scott score is 15. Noted 6x4x1.2cm open full thickness wound to patient's R inner gluteal. There's 2.5 cm undermining from 3:00-4:00. Patient has history of Rt buttock abscess wound and undergone debridement. She added that she has home health nurse that comes to her house daily for wound care. Cleansed patent's R gluteal wound with NS, took specimen for wound culture and sent to lab for processing. Applied Thera honey gel to wound bed area, fill wound cavity with one piece 4x4 NS moistened gauze and covered Rt gluteal with Opti foam gentle dressing. Applied new care bad and draw sheet. Patient tolerated well, repositioned for comfort facing her Rt. side, redistributed pressure points with pillows. RECOMMENDATION: Nursing to continue with Daily/PRN dressing change to Rt gluteal wound per MD order, Dietary consult, frequent turning and repositioning schedule as condition permits,redistribute pressure points with pillows,frequent ryley care/check, keep clean and dry, continue monitoring by wound care while patient is hospitalized. Addendum: 10/17/19 at 1415 by Olivia Huang RN Amended: Links added.
[2019-10-17] MEDS: HEPARIN SODIUM (PORCINE) 5000 UNITS/ML 1ML VIAL SC SCH ×2 (14:16→22:36)
[2019-10-18] MEDS: MORPHINE SULF INJ 2 MG/ML SYRINGE 1ML IV PRN ×3 (03:00→05:02)
[2019-10-18] MEDS: SODIUM CHLORIDE 0.9% 1,000 ML IV SCH ×3 (03:00→20:36)
[2019-10-18] MEDS: HEPARIN SODIUM (PORCINE) 5000 UNITS/ML 1ML VIAL SC SCH ×3 (06:53→21:18)
[2019-10-18 09:29] LABS: Basophils # (auto) 0 10 ^3/uL (0-0.2); Eosinophils # (auto) 0.1 10 ^3/uL (0-0.8); Eosinophils % (auto) 1.1 % (0.0-7.0); Hematocrit 30.9 % (36.0-46.0); Lymphocytes # (auto) 1.3 10 ^3/uL (0.4-5.4); Mean Corpuscular Hgb Conc. 30.6 g/dL (32.0-36.0); Neutrophils # (auto) 6.8 10 ^3/uL (1.6-8.6)
[2019-10-18 09:33] LABS: Basophils % (auto) 0.3 % (0.0-2.0); Hemoglobin 9.5 g/dL (12.2-16.2); Lymphocytes % (auto) 14.8 % (10.0-50.0); Mean Corpuscular Hemoglobin 28.8 pg (28.0-32.0); Mean Corpuscular Volume 94.2 fL (80.0-100.0); Monocytes # (auto) 0.7 10 ^3/uL (0-1.3); Monocytes % (auto) 8.1 % (0.0-12.0); Neutrophils % (auto) 75.7 % (37.0-80.0); Nucleated Red Blood Cells % 0.1 %; Platelet Count (auto) 322 10^3/uL (140-450); Red Blood Cells 3.28 10^6/uL (4.0-5.20); Red Cell Distribution Width 18.8 % (11.8-14.3)
[2019-10-18] MEDS: HYDROcodone-ACET 5/325MG TAB PO PRN ×3 (09:36→23:35)
[2019-10-18] MEDS: cefTRIAXone 1GM/50ML D5W 50 ML IV SCH (09:36)
[2019-10-18 09:51] LABS: Potassium 4.6 mmol/L (3.5-5.1)
[2019-10-18 09:58] LABS: Albumin 2.2 g/dL (3.4-5.0); BUN/Creatinine Ratio 13.8; Bilirubin, Total 0.4 mg/dL (0.2-1.0); Calcium 8.5 mg/dL (8.5-10.1); Magnesium 1.9 mg/dL (1.6-2.6); Total Protein 6.6 g/dL (6.4-8.2)
[2019-10-18 14:40] LABS: INR 1.53 (0.9-1.15); Partial Thromboplastin Time 39.6 sec (23.64-32.05)
[2019-10-18] MEDS ORDERED: SODIUM CHLORIDE 0.9% 1,000 ML IV ONE (15:30)
--- NOTE | 2019-10-18 15:54 | NUR ---
Nutrition Assessment Notes please see attached link for complete assessment Est Energy needs BW 72 [id number] kcals (23-25 kcal/kgBW), Est Protein needs: 57-72 gms/day (0.8-1.0 gm/kgBW r/t elev RFT wounds). Will continue to monitor and reassess prn. Addendum: 10/18/19 at [address] Amended: Links added.
[2019-10-19] MEDS: SODIUM CHLORIDE 0.9% 1,000 ML IV SCH ×2 (06:31→11:42)
[2019-10-19] MEDS ORDERED: HEPARIN SODIUM (PORCINE) 5000 UNITS/ML 1ML VIAL ONE (06:32)
[2019-10-19] MEDS: HEPARIN SODIUM (PORCINE) 5000 UNITS/ML 1ML VIAL SC SCH (06:39)
[2019-10-19] MEDS: HYDROcodone-ACET 5/325MG TAB PO PRN (06:40)
[2019-10-19] MEDS: cefTRIAXone 1GM/50ML D5W 50 ML IV SCH (09:35)
[2019-10-19 10:30] VITALS: BP 140/73
[2019-10-19 11:06] LABS: Basophils # (auto) 0 10 ^3/uL (0-0.2); Basophils % (auto) 0.3 % (0.0-2.0); Eosinophils # (auto) 0.1 10 ^3/uL (0-0.8); Eosinophils % (auto) 1.6 % (0.0-7.0); Hematocrit 27.6 % (36.0-46.0); Hemoglobin 8.7 g/dL (12.2-16.2); Lymphocytes # (auto) 1.1 10 ^3/uL (0.4-5.4); Lymphocytes % (auto) 18.8 % (10.0-50.0); Mean Corpuscular Hemoglobin 28.1 pg (28.0-32.0); Mean Corpuscular Hgb Conc. 31.6 g/dL (32.0-36.0); Monocytes # (auto) 0.5 10 ^3/uL (0-1.3); Monocytes % (auto) 7.6 % (0.0-12.0); Neutrophils # (auto) 4.4 10 ^3/uL (1.6-8.6); Neutrophils % (auto) 71.7 % (37.0-80.0); Platelet Count (auto) 281 10^3/uL (140-450); Red Cell Distribution Width 18.5 % (11.8-14.3); White Blood Cell 6.1 10^3/uL (4.4-10.8)
[2019-10-19 11:20] LABS: Potassium 4.3 mmol/L (3.5-5.1)
[2019-10-19 11:28] LABS: Albumin 2.1 g/dL (3.4-5.0); BUN/Creatinine Ratio 14.9; Bilirubin, Total 0.3 mg/dL (0.2-1.0); Calcium 8.4 mg/dL (8.5-10.1); Magnesium 1.7 mg/dL (1.6-2.6); Total Protein 6.3 g/dL (6.4-8.2)
[2019-10-19 11:32] VITALS: BP 140/73
--- NOTE | 2019-10-19 12:42 | NUR ---
Home Health - current Per previous recent admission[facility]
--- NOTE | 2019-10-19 12:43 | NUR ---
PT/Wound Patient was up walking with PT using a walker. O2 was 93/94% on Room air. Took picture of wound to patient's right buttock.
[2019-10-19 12:50] VITALS: BP 115/48
--- NOTE | 2019-10-19 15:26 | NUR ---
JACINTO Rajput CM Spoke with Atiya (JOVAN on-call) regarding patient being discharged home with . She said to fax the face sheet, Order, and H&P over to [facility] and to [facility]. She gave all of the information. Will discharge patient home today as ordered.
--- NOTE | 2019-10-19 16:08 | NUR ---
Discharge Sent information as requested to [facility] and [facility]. Went over discharge paperwork with patient. She would not sign the paperwork. Will go over it with family when they come to pick her up. Removed both IVs intact, no problem. Removed telemetry and sent to ICU per hospital protocol. Notified family that patient has been discharged and is ready to be picked up. Spoke with Kristen who said she would let her sister know to come pickle processor the patient. Tried contacting Jacquelynkelli first, but there was no answer. Picture taken of wound to buttock. Provided patient with the number for [facility]. Waiting for family to pickle processor patient.
[2019-10-19 16:50] VITALS: BP 132/65
--- NOTE | 2019-10-19 17:04 | NUR ---
Left with granddaughter Took patient in wheelchair out to granddaughter's car. Went over paperwork with her. She signed the paperwork as the patient had declined to sign. Patient left with all personal belongings in private vehicle.
--- NOTE | 2019-10-21 09:46 | NUR ---
Weekend national coverage specialist-I received a page from nurse Flores 10/18 letting me know that this patient is to discharge home and resume [facility]. I had nurse Flores fax the order to [facility], and I provided her with phone number to give to patient and family. I faxed order to [facility]. I called [employer] [place]-she will send authorization to [facility].
== END 2019-10-19 17:00 | disposition home health service (06) | DRG 314 ==
LOC: EDBD 03:53 → ER 03:53 → EDUNIT# 03:53 → TELE 03:54 → TELE-WESTW 10-19 10:34
PROVIDERS: ADMIT Internal Medicine; ATTEND Internal Medicine
DX: I95.9 Hypotension, unspecified (principal); N17.0 Acute kidney failure with tubular necrosis; E86.0 Dehydration; I25.10 Atherosclerotic heart disease of native coronary artery without angina pectoris; D64.9 Anemia, unspecified; N18.3 Chronic kidney disease, stage 3 (moderate); E78.5 Hyperlipidemia, unspecified; E11.22 Type 2 diabetes mellitus with diabetic chronic kidney disease; I12.9 Hypertensive chronic kidney disease with stage 1 through stage 4 chronic kidney disease, or unspecified chronic kidney disease; I48.91 Unspecified atrial fibrillation; J44.9 Chronic obstructive pulmonary disease, unspecified; Z83.3 Family history of diabetes mellitus; Z90.710 Acquired absence of both cervix and uterus; Z95.1 Presence of aortocoronary bypass graft
CPT/HCPCS: 36415; 71045; 80053; 81001; 83605; 83735; 83880; 84484; 85025; 85610; 85730; 87040; 87077; 87081; 87086; 87186; 87205; 93005; 96361; 96365; 96367; 97163; 99291; G0378; J0696; J2405

== ENCOUNTER 2020-01-26 19:32 | Inpatient (IN) | payer OTHER, MEDICAID ==
[~2020-01-26] VITALS: Ht 165.1 cm; Wt 70.0 kg
[~2020-01-26 19:32] MED LIST changes: +ALEN35TA18 PO; -ATOR20TA50 PO; +CARV3.1240 PO; +GLIM-5 PO; -LINE1TAB10 PO; -NOR10T PO; -OXYB5SYP4 PO; +OXYB5TAB61 PO; +PRAV20TA3 PO
[2020-01-26] MEDS ORDERED: SODIUM CHLORIDE 0.9% 1,000 ML IV ONE ×2 (20:30→22:00)
[2020-01-26 21:22] LABS: Basophils # (auto) 0 10 ^3/uL (0-0.2); Basophils % (auto) 0.9 % (0.0-2.0); Eosinophils # (auto) 0 10 ^3/uL (0-0.8); Eosinophils % (auto) 0.6 % (0.0-7.0); Hematocrit 28.6 % (36.0-46.0); Hemoglobin 9.3 g/dL (12.2-16.2); Lymphocytes # (auto) 1.3 10 ^3/uL (0.4-5.4); Mean Corpuscular Hemoglobin 29.1 pg (28.0-32.0); Mean Corpuscular Hgb Conc. 32.5 g/dL (32.0-36.0); Mean Corpuscular Volume 89.5 fL (80.0-100.0); Monocytes # (auto) 0.3 10 ^3/uL (0-1.3); Monocytes % (auto) 6.6 % (0.0-12.0); Neutrophils # (auto) 2.8 10 ^3/uL (1.6-8.6); Neutrophils % (auto) 62.9 % (37.0-80.0); Nucleated Red Blood Cells % 0.1 %; Platelet Count (auto) 267 10^3/uL (140-450); White Blood Cell 4.5 10^3/uL (4.4-10.8)
[2020-01-26 21:38] LABS: Albumin 2.6 g/dL (3.4-5.0); Calcium 8.3 mg/dL (8.5-10.1); INR 1.12 (0.9-1.15); Magnesium 2.2 mg/dL (1.6-2.6); Partial Thromboplastin Time 25.7 sec (23.0-31.2)
[2020-01-26 21:43] LABS: Red Cell Distribution Width 22.6 % (11.8-14.3)
[2020-01-26 21:44] LABS: BUN/Creatinine Ratio 11.1; Bilirubin, Total 0.6 mg/dL (0.2-1.0); Total Protein 6.9 g/dL (6.4-8.2)
[2020-01-26 21:46] LABS: Potassium 2.8 mmol/L (3.5-5.1)
[2020-01-26] MEDS ORDERED: POTASSIUM EFFERVESENT TAB 25 MEQ PO ONE (22:00)
[2020-01-27] MEDS ORDERED: SODIUM CHLORIDE 0.9% 1,000 ML IV ONE (01:30)
[2020-01-27 01:36] LABS: Urine Bacteria MANY /hpf (None Seen); Urine Blood 2+ /uL (Negative); Urine Hyaline Cast MANY /lpf (0 - 2); Urine Mucus FEW (None Seen); Urine Specific Gravity 1.019 (1.001-1.035); Urine WBC 12 /hpf (0 - 5)
[2020-01-27 02:40] VITALS: BP 134/98
[2020-01-27] MEDS ORDERED: NOREPINEPHRINE 8 MG/250ML KIT 250 ML IV ONE (02:53)
[2020-01-27] MEDS: NOREPINEPHRINE 8 MG/250ML KIT 250 ML IV SCH ×3 (03:00→16:15)
[2020-01-27] MEDS ORDERED: NOREPINEPHRINE 8 MG/250ML KIT 250 ML IV SCH (03:00)
[2020-01-27] MEDS ORDERED: ACETAMINOPHEN 325 MG TAB PO PRN (03:15)
[2020-01-27] MEDS ORDERED: DOCUSATE SOD 100 MG CAP PO PRN (03:15)
[2020-01-27] MEDS ORDERED: IPRATROPIUM BROM 0.5 MG/2.5ML INH SOL NEB PRN (03:15)
[2020-01-27] MEDS ORDERED: SODIUM CHLORIDE 0.9% 1,000 ML IV SCH (03:15)
[2020-01-27] MEDS ORDERED: ONDANSETRON HCL 4 MG/2 ML VIAL IV PRN (03:15)
[2020-01-27] MEDS ORDERED: ALBUTEROL SULF 2.5 MG/0.5ML(0.5%) NEB SOLN NEB PRN (03:15)
[2020-01-27] MEDS ORDERED: DEXTROSE 50% SYRINGE 50 ML IV ONE (03:20)
[2020-01-27] MEDS ORDERED: DEXTROSE (50%) 50ML SYRG IV ONE (03:30)
[2020-01-27] MEDS ORDERED: methylPREDNISolone SOD SUCC 125 MG/2 ML VL IV SCH (03:30)
[2020-01-27] MEDS: cefTRIAXone 1GM/50ML D5W 50 ML IV SCH (03:34)
[2020-01-27] MEDS ORDERED: ALBUMIN 25% 100 ML IV ONE (03:45)
--- NOTE | 2020-01-27 07:28 | NUR ---
PRN [place] TX NOT INDICATED AT THIS TIME. PT IS ON RA. 95% O2 SATS. HR 89 BPM, RR18 BPM, BS ARE DIMINISHED TO AUSCULTATION. PT DENIES SOB OR ANY OTHER RESPIRATORY DISTRESS. PT INSTRUCTED TO CALL IF [place] TX IS INDICATED. WILL CONTINUE TO MONITOR PT.
[2020-01-27 09:40] VITALS: BP 95/60
--- NOTE | 2020-01-27 11:52 | NUR ---
WOUND CARE NOTE: WOUND CARE IN TO SEE PATIENT PER WOUND CARE REQUEST. PATIENT ADMITTED TO [facility] FOR SUSPECTED COPD EXACERBATION AND UTI. BEDSIDE NURSE NOTED SKIN INTEGRITY ISSUE UPON ADMISSION. PATIENT DALJIT SCORE IS 14. PHOTOGRAPH TAKEN AT THIS TIME FOR REFERENCE. PATIENT NOTED TO HAVE STAGE 4 PRESSURE INJURY TO SACRUM. WOUND MEASURES 1.2x1.5x2.0cm. THERE IS UNDERMINING OF 4.5cm FROM 9 O'CLOCK TO 1 O'CLOCK. CLEANSED WITH NORMAL SALINE, PATTED DRY WITH STERILE GAUZE, PACKED UNDERMINING WITH SALINE SOAKED GAUZE, COVERED WITH OPTIFOAM GENTLE SACRAL DRESSING. RECOMMEND: FREQUENT Q2HOUR REPOSITIONING CONDITION PERMITS. REDISTRIBUTE PRESSURE UTILIZING PILLOWS AND WEDGES. DAILY/PRN DRESSING CHANGE TO SACRUM. SKIN/WOUND CARE PLAN. CONTINUED MONITORING BY WOUND CARE TEAM. Addendum: 01/27/20 at 1532 by STEPHANIA DANIELS RN RN Amended: Links added.
[2020-01-27] MEDS ORDERED: FAMOTIDINE 20 MG TAB PO ONE (12:45)
[2020-01-27] MEDS: methylPREDNISolone SOD SUCC 40 MG/ML VL IV SCH ×2 (13:00→18:39)
[2020-01-27] MEDS: HYDROcodone-ACET 5/325MG TAB PO PRN ×2 (13:08→21:09)
[2020-01-27] MEDS ORDERED: SODIUM CHLORIDE 0.9% 500 ML IV ONE (13:30)
[2020-01-27] MEDS: SODIUM CHLORIDE 0.9% 1,000 ML IV SCH (13:31)
[2020-01-27] MEDS: ALBUTEROL SULF 2.5 MG/0.5ML(0.5%) NEB SOLN NEB SCH (19:03)
[2020-01-27] MEDS: IPRATROPIUM BROM 0.5 MG/2.5ML INH SOL NEB SCH (19:03)
[2020-01-27] MEDS: GABAPENTIN 300 MG CAP PO SCH (21:58)
[2020-01-27] MEDS ORDERED: FAMOTIDINE 20 MG TAB PO SCH (22:00)
[2020-01-28] MEDS: SODIUM CHLORIDE 0.9% 1,000 ML IV SCH ×3 (00:11→21:08)
[2020-01-28] MEDS: methylPREDNISolone SOD SUCC 40 MG/ML VL IV SCH ×3 (00:12→12:18)
[2020-01-28] MEDS: ALBUTEROL SULF 2.5 MG/0.5ML(0.5%) NEB SOLN NEB SCH ×4 (00:19→18:30)
[2020-01-28] MEDS: IPRATROPIUM BROM 0.5 MG/2.5ML INH SOL NEB SCH ×4 (00:20→18:30)
[2020-01-28] MEDS: GABAPENTIN 300 MG CAP PO SCH ×3 (06:05→21:08)
[2020-01-28] MEDS ORDERED: SODIUM CHLORIDE 0.9% 500 ML IV ONE (09:00)
[2020-01-28 09:12] LABS: Basophils # (auto) 0 10 ^3/uL (0-0.2); Eosinophils # (auto) 0 10 ^3/uL (0-0.8); Hemoglobin 7.6 g/dL (12.2-16.2); Lymphocytes # (auto) 0.4 10 ^3/uL (0.4-5.4); Monocytes # (auto) 0.1 10 ^3/uL (0-1.3); Neutrophils # (auto) 2.6 10 ^3/uL (1.6-8.6)
[2020-01-28 09:15] LABS: Basophils % (auto) 0.1 % (0.0-2.0); Hematocrit 23.3 % (36.0-46.0); Lymphocytes % (auto) 12.2 % (10.0-50.0); Mean Corpuscular Hemoglobin 28.9 pg (28.0-32.0); Mean Corpuscular Hgb Conc. 32.7 g/dL (32.0-36.0); Mean Corpuscular Volume 88.6 fL (80.0-100.0); Monocytes % (auto) 2.3 % (0.0-12.0); Neutrophils % (auto) 85.4 % (37.0-80.0); Platelet Count (auto) 247 10^3/uL (140-450); Red Blood Cells 2.63 10^6/uL (4.0-5.20)
[2020-01-28 09:25] LABS: Red Cell Distribution Width 22.5 % (11.8-14.3)
[2020-01-28 09:32] LABS: BUN/Creatinine Ratio 9.6; Calcium 8.3 mg/dL (8.5-10.1); Potassium 3.1 mmol/L (3.5-5.1)
[2020-01-28] MEDS: FAMOTIDINE 20 MG TAB PO SCH (09:34)
[2020-01-28] MEDS: cefTRIAXone 1GM/50ML D5W 50 ML IV SCH (09:34)
--- NOTE | 2020-01-28 12:24 | NUR ---
AT BEDSIDE DR GONG AT BEDSIDE ROUNDING ON PATIENT.
[2020-01-28] MEDS ORDERED: DEXTROSE (50%) 50ML SYRG IV PRN (12:30)
[2020-01-28] MEDS ORDERED: POTASSIUM EFFERVESENT TAB 25 MEQ PO ONE (12:30)
[2020-01-28 13:00] VITALS: BP 115/63
--- NOTE | 2020-01-28 13:29 | NUR ---
Assessment Patient is a 74-year-old female who is alert and oriented. Prior to admission patient lived home with family and functioned with assistance. Patient informed me family helps her with her ADLs. Per patient she has a walker, wheelchair, bedside commode, home oxygen and a nebulizer for home use. Per patient she will return home to her prior living arrangements post discharge and family will transport her home. Advised patient there is a social service consult for hospital bed and home health physical therapy and wound care. Informed patient clinical information will be faxed to [facility], and [facility]. Informed patient she has the right to participate in all discharge planning. Patient verbalized understanding and agreed to discharge plan. Faxed to [employer] and [employer] [facility]. Per Gela with [facility] [employer] patient has been accepted and service to start within 24-48hrs upon d/c day. Contact JOVAN Brush with [facility] advising her patient has orders for home health and a hospital bed. Per JOVAN Brush with [facility] home health will be approved and they will review clinical information to see if patient meets criteria for a hospital bed. Addendum: 01/28/20 at 1330 by MELISA DAN Amended: Links added.
[2020-01-28] MEDS: HYDROcodone-ACET 10/325MG TAB PO PRN ×2 (14:10→21:10)
[2020-01-28] MEDS ORDERED: POTASSIUM CHL 20 Meq TABLET PO ONE (14:15)
--- NOTE | 2020-01-28 15:02 | NUR ---
Telemetry admit from ER LYNETTE HERNANDEZ admitted to Telemetry unit after SBAR received. Patient oriented to Haley roberts RN, unit, room, bed, and unit policies regarding patient care and visiting hours. Patient now on continuous telemetry monitoring, tele box #45 and telemetry reading on arrival to unit is sinus rhythm. Patient weighed by bedscale and encouraged to call if they need something. All questions and concerns addressed, patient verbalized understanding.
--- NOTE | 2020-01-28 16:17 | NUR ---
D/C planning Received a call from JOVAN Brush with [facility] advising me patient has been approved for the hospital bed and authorization for PAULO is [id number] and for Riri [id number].
[2020-01-28 16:59] VITALS: BP 102/50
[2020-01-28] MEDS: InsuLIN REG 1unit/0.01ml Soln (100units/ml) SC SCH ×2 (17:00→21:09)
[2020-01-28] MEDS: ACCU-CHEK COMFORT CURVE STRIP VI SCH ×2 (17:05→21:09)
--- NOTE | 2020-01-28 19:45 | NUR ---
PATIENT CALLED ME AND ASKED ME OF HER "WHITE WALLET'. LOOKED ALL AROUND FROM THE DRAWER, BED AND TRASH BINS AND UNABLE TO SEE ANY WALLET. MEAL ROOM HAND WITNESSED THE SEARCH FROM THE BINS WELL. NO WALLET SEEN. OTHERWISE, PATIENT IS STABLE. NO SOB. DENIES ANY PAIN. WILL KEEP AN EYE ON PATIENT. BED ALARM IS ON.
--- NOTE | 2020-01-28 22:00 | NUR ---
REFUSED ACCU CHECK. SHE SAID, " I AM NOT DIABETIC ". CONSEQUENCES EXPLAINED, BUT REFUSED.
[2020-01-29] MEDS: ALBUTEROL SULF 2.5 MG/0.5ML(0.5%) NEB SOLN NEB SCH ×3 (00:28→12:08)
[2020-01-29] MEDS: IPRATROPIUM BROM 0.5 MG/2.5ML INH SOL NEB SCH ×3 (00:28→12:08)
--- NOTE | 2020-01-29 00:28 | NUR ---
Respiratory note: PT SEEN FOR SCHEDULED MED NEB TX AT 0028. PT REFUSED THEIR TX AT THIS TIME STATING THAT SHE WANTS TO SLEEP. NO DISTRESS NOTED AT THIS TIME, SHE WAS SLEEPING WHEN ENTERING THE ROOM. HR 71 RR 16 SP02 93%. PT AWARE TO CALL FOR RT IF SHE CHANGES HER MIND.
[2020-01-29] MEDS: ACCU-CHEK COMFORT CURVE STRIP VI SCH ×2 (05:25→11:54)
[2020-01-29] MEDS: GABAPENTIN 300 MG CAP PO SCH ×2 (05:25→14:48)
[2020-01-29] MEDS: SODIUM CHLORIDE 0.9% 1,000 ML IV SCH (05:25)
[2020-01-29] MEDS: InsuLIN REG 1unit/0.01ml Soln (100units/ml) SC SCH ×2 (05:26→11:30)
[2020-01-29 05:55] VITALS: BP 143/90
[2020-01-29 08:00] VITALS: BP 113/59
--- NOTE | 2020-01-29 08:00 | NUR ---
AM ASSESSMENT Completed and documented assessment, asked pt questions of condition this AM. Pt was sitting in bed with call light in reach, no signs of distress or discomfort.
[2020-01-29] MEDS: HYDROcodone-ACET 10/325MG TAB PO PRN (08:38)
[2020-01-29 09:00] VITALS: BP 113/59
[2020-01-29] MEDS ORDERED: SULF400T11 PO (09:30)
--- NOTE | 2020-01-29 09:50 | NUR ---
Position change Turned pt onto left side with pillow against pt's back.
[2020-01-29] MEDS: cefTRIAXone 1GM/50ML D5W 50 ML IV SCH (10:23)
[2020-01-29] MEDS: FAMOTIDINE 20 MG TAB PO SCH (10:23)
[2020-01-29 11:13] VITALS: BP 113/59
--- NOTE | 2020-01-29 11:33 | NUR ---
LOW BS Pt's BS was 60, gave 8oz cranberry juice and told to report if feeling ill or any changes.
--- NOTE | 2020-01-29 12:00 | NUR ---
[facility] NURSE AT BEDSIDE.
[2020-01-29 13:00] VITALS: BP 114/49
--- NOTE | 2020-01-29 14:00 | NUR ---
BLOOD GLUCOSE PATIENT REQUESTING OT HAVE BLOOD SUGAR CHECKED. BLOOD GLUCOSE 90
--- NOTE | 2020-01-29 14:58 | NUR ---
D/C Planning Per social service consult for hospice. Information and choice letter was given to patient. Patient requested [facility] that doctor recommended. Faxed clinical information to agency. Per Tsering with [facility] patient has been accepted and service to start upon d/c day. Transportation has been arranged with [employer] via [employer] at 4:00pm. bedside nurse has been informed.
--- NOTE | 2020-01-29 14:58 | NUR ---
DISCHARGE WOUND PHOTOS TAKEN.
--- NOTE | 2020-01-29 16:15 | NUR ---
Discharge instructions given as ordered. Encourage to follow up with PMD as instructed. All questions and concerns addressed. Patient verbalized understanding. Medication reconciliation form completed and copy given to patient. IV removed with catheter intact, pressure dressing applied. Telemetry unit returned to ICU. Patient taken BY TRANSPORT PERSONNEL BY wheelchair with all personal belongings. No distress noted at time of departure.
== END 2020-01-29 15:59 | disposition hospice, home (50) | DRG 314 ==
LOC: ER 19:32 → EDBD 19:32 → TELE 19:33 → TELE-CENTR 01-28 11:49
PROVIDERS: ADMIT Hospitalist; ATTEND Hospitalist
DX: I95.9 Hypotension, unspecified (principal); L89.154 Pressure ulcer of sacral region, stage 4; J44.0 Chronic obstructive pulmonary disease with (acute) lower respiratory infection; N39.0 Urinary tract infection, site not specified; E44.0 Moderate protein-calorie malnutrition; J44.1 Chronic obstructive pulmonary disease with (acute) exacerbation; D64.9 Anemia, unspecified; J20.9 Acute bronchitis, unspecified; E11.649 Type 2 diabetes mellitus with hypoglycemia without coma; E87.6 Hypokalemia; I70.0 Atherosclerosis of aorta; I48.91 Unspecified atrial fibrillation; E86.0 Dehydration; I11.0 Hypertensive heart disease with heart failure; I25.10 Atherosclerotic heart disease of native coronary artery without angina pectoris; I50.9 Heart failure, unspecified; Z90.710 Acquired absence of both cervix and uterus; Z95.1 Presence of aortocoronary bypass graft; M19.90 Unspecified osteoarthritis, unspecified site; Z79.84 Long term (current) use of oral hypoglycemic drugs; Z79.82 Long term (current) use of aspirin; Z83.3 Family history of diabetes mellitus; Z80.42 Family history of malignant neoplasm of prostate
CPT/HCPCS: 36415; 71045; 80048; 80053; 81001; 82962; 83735; 83880; 84443; 84484; 85025; 85610; 85730; 87040; 87086; 93005; 94640; 96361; 96365; G0378; J0696; P9047

== ENCOUNTER 2020-04-25 15:01 | Inpatient (IN) | payer OTHER, MEDICAID ==
[~2020-04-25] VITALS: Ht 167.6 cm; Wt 46.8 kg
[~2020-04-25 15:01] MED LIST changes: -ASPI-231 PO; -CARV3.1240 PO; -GLIM-5 PO; +SULF400T11 PO
[2020-04-25 15:47] LABS: Basophils # (auto) 0 10 ^3/uL (0-0.2); Basophils % (auto) 0.3 % (0.0-2.0); Eosinophils # (auto) 0 10 ^3/uL (0-0.8); Hemoglobin 8.1 g/dL (12.2-16.2)
[2020-04-25 15:48] LABS: Eosinophils % (auto) 0.2 % (0.0-7.0); Hematocrit 24.4 % (36.0-46.0); Lymphocytes # (auto) 0.8 10 ^3/uL (0.4-5.4); Lymphocytes % (auto) 9.6 % (10.0-50.0); Mean Corpuscular Hemoglobin 31.2 pg (28.0-32.0); Mean Corpuscular Hgb Conc. 33.2 g/dL (32.0-36.0); Mean Corpuscular Volume 93.8 fL (80.0-100.0); Monocytes # (auto) 0.7 10 ^3/uL (0-1.3); Monocytes % (auto) 7.8 % (0.0-12.0); Neutrophils # (auto) 7.1 10 ^3/uL (1.6-8.6); Neutrophils % (auto) 82.1 % (37.0-80.0); Red Cell Distribution Width 19.6 % (11.8-14.3); White Blood Cell 8.7 10^3/uL (4.4-10.8)
[2020-04-25 16:21] LABS: Albumin 1.9 g/dL (3.4-5.0); Potassium 3.7 mmol/L (3.5-5.1)
[2020-04-25 16:25] LABS: Bilirubin, Total 0.8 mg/dL (0.2-1.0); Total Protein 6.2 g/dL (6.4-8.2)
[2020-04-25] MEDS ORDERED: SODIUM CHLORIDE 0.9% 1,000 ML IVB ONE (16:45)
[2020-04-25 16:55] LABS: Magnesium 1.9 mg/dL (1.6-2.6)
[2020-04-25] MEDS ORDERED: MORPHINE SULFATE INJECTION 2 MG/ML SYRG IV PRN ×2 (18:30→19:15)
[2020-04-25] MEDS ORDERED: NITROGLYCERIN 0.4 MG SL TAB SL PRN (18:30)
[2020-04-25] MEDS ORDERED: traMADol HCL 50 MG TAB PO PRN (19:15)
[2020-04-25] MEDS ORDERED: LACTULOSE 20Gm/30ML SOLN PO PRN (19:15)
[2020-04-25] MEDS ORDERED: DEXTROSE (50%) 50ML SYRG IV PRN (19:15)
[2020-04-25] MEDS ORDERED: TEMAZEPAM 15 MG CAP PO PRN (19:15)
[2020-04-25] MEDS ORDERED: ONDANSETRON HCL 4 MG/2 ML VIAL IV PRN (19:15)
[2020-04-25] MEDS ORDERED: cefTRIAXone 1GM/50ML D5W 50 ML IV ONE (19:15)
[2020-04-25 19:53] LABS: Urine Bacteria FEW /hpf (None Seen); Urine Blood 2+ /uL (Negative); Urine Budding Yeast MANY /hpf (None Seen); Urine Specific Gravity 1.015 (1.001-1.035); Urine WBC 26 /hpf (0 - 5)
[2020-04-25] MEDS: SODIUM CHLORIDE 0.9% 1,000 ML IV SCH (20:45)
[2020-04-25] MEDS: InsuLIN REG 1unit/0.01ml Soln (100units/ml) SC SCH (23:13)
[2020-04-25] MEDS: ACCU-CHEK COMFORT CURVE STRIP VI SCH (23:14)
[2020-04-25] MEDS: FAMOTIDINE 20 MG TAB PO SCH (23:30)
[2020-04-25] MEDS: CARVEDILOL 3.125 MG TAB PO SCH (23:30)
[2020-04-25] MEDS: ATORVASTATIN 20 MG TAB PO SCH (23:30)
[2020-04-26] MEDS: InsuLIN REG 1unit/0.01ml Soln (100units/ml) SC SCH ×4 (06:50→22:00)
[2020-04-26] MEDS: ACCU-CHEK COMFORT CURVE STRIP VI SCH ×4 (06:51→22:15)
[2020-04-26] MEDS: SODIUM CHLORIDE 0.9% 1,000 ML IV SCH (07:42)
[2020-04-26] MEDS: cefTRIAXone 1GM/50ML D5W 50 ML IV SCH (09:09)
[2020-04-26] MEDS: ASPirin 81 mg TAB PO SCH (10:00)
[2020-04-26] MEDS: CARVEDILOL 3.125 MG TAB PO SCH ×2 (10:00→22:00)
[2020-04-26] MEDS: FAMOTIDINE 20 MG TAB PO SCH ×2 (10:00→22:00)
[2020-04-26 15:20] LABS: BUN/Creatinine Ratio 13.8; Calcium 7.9 mg/dL (8.5-10.1); Potassium 3.8 mmol/L (3.5-5.1)
[2020-04-26] MEDS: ATORVASTATIN 20 MG TAB PO SCH (22:00)
[2020-04-26] MEDS: AMIODARONE HCL 200 MG TAB PO SCH (22:00)
[2020-04-26] MEDS: APIXABAN 5 MG TAB PO SCH (22:00)
[2020-04-27] MEDS: ACETAMINOPHEN 500 MG TAB PO PRN ×2 (04:52→06:29)
[2020-04-27 05:58] LABS: Basophils # (auto) 0 10 ^3/uL (0-0.2); Eosinophils # (auto) 0 10 ^3/uL (0-0.8); Mean Corpuscular Hgb Conc. 34.2 g/dL (32.0-36.0); Neutrophils # (auto) 8.1 10 ^3/uL (1.6-8.6); White Blood Cell 9.7 10^3/uL (4.4-10.8)
[2020-04-27 06:00] LABS: Basophils % (auto) 0.2 % (0.0-2.0); Eosinophils % (auto) 0.2 % (0.0-7.0); Hematocrit 21.7 % (36.0-46.0); Hemoglobin 7.4 g/dL (12.2-16.2); Lymphocytes # (auto) 0.9 10 ^3/uL (0.4-5.4); Lymphocytes % (auto) 9.6 % (10.0-50.0); Mean Corpuscular Hemoglobin 31.6 pg (28.0-32.0); Mean Corpuscular Volume 92.5 fL (80.0-100.0); Monocytes # (auto) 0.6 10 ^3/uL (0-1.3); Monocytes % (auto) 6.4 % (0.0-12.0); Neutrophils % (auto) 83.6 % (37.0-80.0); Nucleated Red Blood Cells % 0.1 %; Red Blood Cells 2.35 10^6/uL (4.0-5.20)
[2020-04-27 06:04] LABS: Red Cell Distribution Width 19.9 % (11.8-14.3)
[2020-04-27 06:11] LABS: Calcium 7.8 mg/dL (8.5-10.1); Potassium 3.2 mmol/L (3.5-5.1)
[2020-04-27 06:16] LABS: BUN/Creatinine Ratio 15.5; Magnesium 1.9 mg/dL (1.6-2.6)
[2020-04-27] MEDS: InsuLIN REG 1unit/0.01ml Soln (100units/ml) SC SCH ×4 (06:58→21:54)
[2020-04-27] MEDS: ACCU-CHEK COMFORT CURVE STRIP VI SCH ×4 (06:58→21:54)
[2020-04-27] MEDS: cefTRIAXone 1GM/50ML D5W 50 ML IV SCH (09:00)
[2020-04-27] MEDS: CARVEDILOL 3.125 MG TAB PO SCH ×3 (10:00→21:53)
[2020-04-27] MEDS: FAMOTIDINE 20 MG TAB PO SCH ×2 (10:00→21:53)
[2020-04-27] MEDS: AMIODARONE HCL 200 MG TAB PO SCH ×2 (10:00→21:53)
[2020-04-27] MEDS: ASPirin 81 mg TAB PO SCH (10:00)
[2020-04-27] MEDS: APIXABAN 5 MG TAB PO SCH ×2 (10:00→21:52)
[2020-04-27] MEDS ORDERED: LORazepam 2MG/ML-1ML VIAL IV PRN (15:45)
[2020-04-27] MEDS: D5W/SOD CHLO 0.9% 1,000 ML IV SCH (18:33)
[2020-04-27 20:00] VITALS: BP 89/70
[2020-04-27] MEDS: ATORVASTATIN 20 MG TAB PO SCH (21:53)
[2020-04-28] VITALS (8 sets, daily range): BP systolic 66–135; BP diastolic 36–61
[2020-04-28] MEDS: D5W/SOD CHLO 0.9% 1,000 ML IV SCH ×3 (04:40→22:28)
[2020-04-28] MEDS: ACCU-CHEK COMFORT CURVE STRIP VI SCH ×4 (05:53→22:27)
[2020-04-28] MEDS: InsuLIN REG 1unit/0.01ml Soln (100units/ml) SC SCH ×4 (05:53→22:00)
[2020-04-28] MEDS: cefTRIAXone 1GM/50ML D5W 50 ML IV SCH (09:09)
[2020-04-28] MEDS: ASPirin 81 mg TAB PO SCH (09:09)
[2020-04-28] MEDS: AMIODARONE HCL 200 MG TAB PO SCH ×2 (09:10→22:00)
[2020-04-28] MEDS: CARVEDILOL 3.125 MG TAB PO SCH ×2 (09:10→22:00)
[2020-04-28] MEDS: FAMOTIDINE 20 MG TAB PO SCH ×2 (09:11→22:00)
[2020-04-28] MEDS: APIXABAN 5 MG TAB PO SCH ×2 (09:11→22:00)
[2020-04-28] MEDS ORDERED: SODIUM CHLORIDE 0.9% 500 ML IV ONE ×2 (11:30→22:30)
[2020-04-28 12:54] LABS: Basophils # (auto) 0 10 ^3/uL (0-0.2); Eosinophils # (auto) 0 10 ^3/uL (0-0.8); Lymphocytes # (auto) 0.8 10 ^3/uL (0.4-5.4); Red Cell Distribution Width 19.9 % (11.8-14.3)
[2020-04-28 12:56] LABS: Basophils % (auto) 0.1 % (0.0-2.0); Eosinophils % (auto) 0.5 % (0.0-7.0); Hematocrit 19.6 % (36.0-46.0); Lymphocytes % (auto) 10.5 % (10.0-50.0); Mean Corpuscular Hgb Conc. 34.1 g/dL (32.0-36.0); Mean Corpuscular Volume 90.9 fL (80.0-100.0); Monocytes # (auto) 0.4 10 ^3/uL (0-1.3); Monocytes % (auto) 5.3 % (0.0-12.0); Neutrophils # (auto) 6.7 10 ^3/uL (1.6-8.6); Neutrophils % (auto) 83.6 % (37.0-80.0); Red Blood Cells 2.16 10^6/uL (4.0-5.20)
[2020-04-28 13:14] LABS: Hemoglobin 6.7 g/dL (12.2-16.2)
[2020-04-28 13:16] LABS: BUN/Creatinine Ratio 15.5; Calcium 7.9 mg/dL (8.5-10.1)
[2020-04-28] MEDS ORDERED: ACETAMINOPHEN 325 MG TAB PO ONE (21:15)
[2020-04-28] MEDS ORDERED: diphenhdrAMINE HCL 25 MG CAP PO ONE (21:15)
[2020-04-28] MEDS: ATORVASTATIN 20 MG TAB PO SCH (22:00)
[2020-04-28] MEDS ORDERED: ACETAMINOPHEN 120 MG RECT SUPP PR ONE (22:00)
[2020-04-28] MEDS ORDERED: ACETAMINOPHEN 650 MG RECT SUPP PR ONE (22:30)
[2020-04-28] MEDS ORDERED: diphenhdrAMINE HCL 50 MG/1 ML VL IV ONE (22:30)
[2020-04-28] MEDS ORDERED: SODIUM CHLORIDE 0.9% 1,000 ML IV ONE (22:45)
[2020-04-29] MEDS ORDERED: DIGOXIN (250MCG/ML) 2 ML AMPULE IV ONE (01:30)
[2020-04-29] MEDS: SODIUM CHLORIDE 0.9% 1,000 ML IV SCH ×2 (02:00→07:00)
[2020-04-29] MEDS: AMIODARONE HCL 200 MG TAB PO SCH ×3 (02:03→20:57)
[2020-04-29] MEDS ORDERED: METOPROLOL TARTRATE 1MG/1ML-5ML VIAL IV PRN (02:06)
[2020-04-29] MEDS ORDERED: ALBUMIN 5% 250 ML IV ONE (03:15)
[2020-04-29] MEDS: InsuLIN REG 1unit/0.01ml Soln (100units/ml) SC SCH ×4 (07:00→21:31)
[2020-04-29] MEDS: ACCU-CHEK COMFORT CURVE STRIP VI SCH ×4 (07:00→21:31)
[2020-04-29 08:00] VITALS: BP 74/45
[2020-04-29] MEDS ORDERED: DEXTROSE 50% SYRINGE 50 ML IV ONE (09:10)
[2020-04-29] MEDS: cefTRIAXone 1GM/50ML D5W 50 ML IV SCH (09:11)
[2020-04-29] MEDS: APIXABAN 5 MG TAB PO SCH ×2 (09:12→20:58)
[2020-04-29] MEDS: CARVEDILOL 3.125 MG TAB PO SCH ×2 (09:12→21:01)
[2020-04-29] MEDS: FAMOTIDINE 20 MG TAB PO SCH ×2 (09:12→21:00)
[2020-04-29] MEDS: D5W/SOD CHLO 0.9% 1,000 ML IV SCH ×2 (09:13→20:57)
[2020-04-29 10:44] LABS: Basophils # (auto) 0 10 ^3/uL (0-0.2); Eosinophils # (auto) 0 10 ^3/uL (0-0.8); Lymphocytes # (auto) 0.7 10 ^3/uL (0.4-5.4); Mean Corpuscular Volume 91.1 fL (80.0-100.0); White Blood Cell 15.1 10^3/uL (4.4-10.8)
[2020-04-29 10:46] LABS: Basophils % (auto) 0.3 % (0.0-2.0); Hematocrit 19.9 % (36.0-46.0); Lymphocytes % (auto) 4.9 % (10.0-50.0); Mean Corpuscular Hemoglobin 29.7 pg (28.0-32.0); Mean Corpuscular Hgb Conc. 32.7 g/dL (32.0-36.0); Monocytes # (auto) 0.5 10 ^3/uL (0-1.3); Monocytes % (auto) 3.2 % (0.0-12.0); Neutrophils # (auto) 13.8 10 ^3/uL (1.6-8.6); Neutrophils % (auto) 91.6 % (37.0-80.0); Nucleated Red Blood Cells % 0.1 %; Red Blood Cells 2.18 10^6/uL (4.0-5.20)
[2020-04-29 10:59] LABS: Red Cell Distribution Width 21.4 % (11.8-14.3)
[2020-04-29 11:01] LABS: Hemoglobin 6.5 g/dL (12.2-16.2)
[2020-04-29 11:08] LABS: BUN/Creatinine Ratio 12.3; Calcium 7.2 mg/dL (8.5-10.1); Potassium 3.3 mmol/L (3.5-5.1)
[2020-04-29] MEDS ORDERED: SODIUM CHLORIDE 0.9% 500 ML IV ONE (12:00)
[2020-04-29] MEDS: SODIUM CHLORIDE 0.9% 500 ML IV SCH ×2 (12:30→13:30)
[2020-04-29 16:00] VITALS: BP 85/47
[2020-04-29] MEDS ORDERED: POTASSIUM CHL 20 Meq TABLET PO ONE (16:45)
[2020-04-29] MEDS: ACETAMINOPHEN 500 MG TAB PO PRN (17:23)
[2020-04-29 20:00] VITALS: BP 100/55
[2020-04-29] MEDS: ATORVASTATIN 20 MG TAB PO SCH (20:58)
[2020-04-29 22:45] VITALS: BP 100/55
== END 2020-04-30 00:28 | disposition hospice, home (50) | DRG 637 ==
LOC: ER 15:01 → EDBD 15:01 → TELE 18:29 → TELE-CENTR 04-27 17:53
PROVIDERS: ADMIT Internal Medicine; ATTEND Hospitalist
PROC: 30233N1 Transfusion of Nonautologous Red Blood Cells into Peripheral Vein, Percutaneous Approach (ICD-10-PCS; principal; 2020-04-28)
DX: E11.649 Type 2 diabetes mellitus with hypoglycemia without coma (principal); G93.41 Metabolic encephalopathy; E11.52 Type 2 diabetes mellitus with diabetic peripheral angiopathy with gangrene; N39.0 Urinary tract infection, site not specified; I48.20 Chronic atrial fibrillation, unspecified; E44.0 Moderate protein-calorie malnutrition; Z68.1 Body mass index [BMI] 19.9 or less, adult; I96 Gangrene, not elsewhere classified; L89.159 Pressure ulcer of sacral region, unspecified stage; Z66 Do not resuscitate; Z20.822 Contact with and (suspected) exposure to COVID-19; R62.7 Adult failure to thrive; D50.8 Other iron deficiency anemias; J44.9 Chronic obstructive pulmonary disease, unspecified; I25.10 Atherosclerotic heart disease of native coronary artery without angina pectoris; D63.8 Anemia in other chronic diseases classified elsewhere; E88.09 Other disorders of plasma-protein metabolism, not elsewhere classified; E78.5 Hyperlipidemia, unspecified; I10 Essential (primary) hypertension; F17.200 Nicotine dependence, unspecified, uncomplicated; I27.20 Pulmonary hypertension, unspecified; M19.90 Unspecified osteoarthritis, unspecified site; R54 Age-related physical debility; Z51.5 Encounter for palliative care; Z79.01 Long term (current) use of anticoagulants; Z79.82 Long term (current) use of aspirin; Z79.899 Other long term (current) drug therapy; Z82.49 Family history of ischemic heart disease and other diseases of the circulatory system; Z83.3 Family history of diabetes mellitus; Z86.73 Personal history of transient ischemic attack (TIA), and cerebral infarction without residual deficits; Z90.710 Acquired absence of both cervix and uterus; Z95.1 Presence of aortocoronary bypass graft
CPT/HCPCS: 36415; 51702; 70551; 71045; 80048; 80053; 81001; 82550; 82962; 83036; 83735; 83880; 84443; 84484; 85025; 85379; 86850; 86900; 86901; 86920; 87426; 93005; 96360; 97163; G0378; J0696; J2405